=== PATIENT | female | born 1950 | race Caucasian/White ===

== ENCOUNTER → 2017-01-04 | Outpatient (CLI) | payer MEDICARE, OTHER ==
[~2017-01-04] MED LIST: AMIT25TA9 PO; ASCO10006 PO; ASCO1TAB39 PO; ASCORBIC ACID 500 MG PO; ATRV10T PO; CALC-902 PO; CELE100C PO; CITA10TA12 PO; CITA20TA12 PO; CTLP20T PO; CYCL10TA9 PO; ESTR1TAB24 PO; ESTR2TAB PO; FEXO-46 PO; FEXO60CA19 PO; FISH1CAP15 PO; HYDR-3730 PO; L.AC1CAP6 PO; LEVO88TA54 PO; LVT.025T; LVT.05T PO; MAGN400C PO; MMT17NA; MNTL10T; MULT-974 PO; NAPR-243 PO; OMG1KC PO; ONDA-42 SL; ONDA4TAB8 PO; ONDA4TAB8 SL; ONDN4T PO; OXYC-197 PO; OXYC-471 PO; PANT40TA PO; PREMPRO; PROM25SU10 PR; RNT150T; SOLI5TAB4 PO; TURM500C7 PO; VIT1CAPS5 PO; VITA150T PO; ZOLP5TAB6 PO; amitriptyline PO; calcium 600 mg PO
--- NOTE | 2017-01-04 10:25 | Diagnostic Imaging Report ---
EXAMINATION: Bilateral screening mammogram 2D views with tomosynthesis. The current study was also evaluated with a Computer Aided Detection (CAD) system. INDICATION: Screening. PERSONAL HISTORY: No current complaints stated on the questionnaire. COMPARISON: 05/14/2015. FINDINGS: The breasts are composed of heterogeneously dense parenchyma which may decrease mammographic sensitivity. Punctate benign-appearing calcifications are seen. There is an oval 8 mm asymmetry seen along the far posterior aspect of the left breast noted on the implant displaced left CC view. The right breast demonstrates no definite change. The implants appear symmetric without significant change from the previous exam and are in a retropectoral location. IMPRESSION: Further evaluation with a focal compression view and ultrasound for medial far posterior left breast asymmetry would be recommended. ACR BI-RADS Category 0: Incomplete. (Needs additional imaging evaluation). Result letter will be mailed to the patient. Note: At least 10% of breast cancer is not imaged by mammography. Dictated by: Dictated on workstation # [id number]
== END ==
LOC: RAD 08:18
PROVIDERS: ATTEND Family Medicine
DX: Z12.31 Encounter for screening mammogram for malignant neoplasm of breast (principal); N64.89 Other specified disorders of breast
CPT/HCPCS: 77067

== ENCOUNTER → 2017-01-17 | Outpatient (CLI) | payer MEDICARE, OTHER ==
--- NOTE | 2017-01-17 09:44 | Diagnostic Imaging Report ---
EXAMINATION: Left breast diagnostic mammogram with tomography. The current study was also evaluated with a Computer Aided Detection (CAD) system. INDICATION: Asymmetry along the far posterior medial aspect of the left breast. FINDINGS: The asymmetry was evaluated with focal compression views and demonstrates probably summation artifact of parenchyma with no definite underlying lesion responsible for the asymmetry. IMPRESSION: The asymmetry in the medial aspect of the left breast is favored to be related to summation artifact of parenchyma. An ultrasound evaluation is pending. ACR BI-RADS Category 0: Incomplete. (Needs additional imaging evaluation). Result letter will be mailed to the patient. Note: At least 10% of breast cancer is not imaged by mammography. Dictated by: Dictated on workstation # [id number]
--- NOTE | 2017-01-17 11:41 | Diagnostic Imaging Report ---
EXAMINATION: Left breast ultrasound. INDICATION: Left breast pain and lump. Medial left breast asymmetry. FINDINGS: There is a 1.1 cm simple cyst at the 8 o'clock zone 5 cm from the nipple. This may explain the palpable lump and mammographic abnormality. IMPRESSION: There is a 1.1 cm simple cyst at the 8 o'clock zone 5 cm from the nipple which probably explains the mammographic abnormality at the palpable area. No suspicious lesion is seen. A 6 month followup mammogram is recommended to ensure no adverse development. ACR BI-RADS Category 3: Probably benign findings. Dictated by: Dictated on workstation # [id number]
== END ==
LOC: RAD 09:06
PROVIDERS: ATTEND Family Medicine
DX: N60.02 Solitary cyst of left breast (principal)
CPT/HCPCS: 76642

== ENCOUNTER → 2017-08-04 | Outpatient (CLI) | payer MEDICARE, OTHER ==
--- NOTE | 2017-08-04 19:31 | Diagnostic Imaging Report ---
INDICATION: Left breast density. Patient presents for six-month followup. COMPARISON: Correlation is made with prior mammograms from 01/04/2017 and 01/17/2017. TECHNIQUE: 2D and 3D unilateral left diagnostic mammography was performed including conventional CC, MLO, and 90 degree lateral views with and without implant-displaced views. The current study was also evaluated with a Computer Aided Detection (CAD) system. FINDINGS: The rounded density in the far posterior medial left breast noted on prior study is no longer visualized. No new mass is detected. No malignant appearing microcalcifications are seen. The left axilla is unremarkable IMPRESSION: Previously noted rounded density in the far posterior medial left breast has resolved. Patient should return in six months for bilateral screening mammography. ACR BI-RADS Category 1: Negative. Result letter will be mailed to the patient. Note: At least 10% of breast cancer is not imaged by mammography. Dictated by: Dictated on workstation # [id number]
== END ==
LOC: RAD 13:14
PROVIDERS: ATTEND Family Medicine
DX: R92.2 Inconclusive mammogram (principal)

== ENCOUNTER → 2017-11-30 | Outpatient (CLI) | payer MEDICARE, OTHER ==
[~2017-11-30] MED LIST changes: -OXYC-197 PO; +OXYC1TAB87 PO
--- NOTE | 2017-11-30 12:21 | Diagnostic Imaging Report ---
PROCEDURE: US right lower extremity venous. TECHNIQUE: Multiple real-time grayscale images were obtained over the right lower extremity in various projections. Additional duplex Doppler and color Doppler images were also obtained. INDICATION: Leg pain and swelling. There are no prior studies available for comparison. FINDINGS: There is generally good blood flow and compressibility at all levels of the deep venous system. Shere is no sign of a deep venous thrombosis. IMPRESSION: There is no evidence for deep venous thrombosis of the right lower extremity. Dictated by: Dictated on workstation # [id number]
== END ==
LOC: RAD 10:26
PROVIDERS: ATTEND Nurse Practitioner Family
DX: M79.89 Other specified soft tissue disorders (principal)

== ENCOUNTER → 2018-02-06 | Outpatient (CLI) | payer MEDICARE, OTHER ==
--- NOTE | 2018-02-06 08:40 | Diagnostic Imaging Report ---
PROCEDURE: US Hepatic (Liver). TECHNIQUE: Multiple real-time grayscale images were obtained over the right upper quadrant in various projections. INDICATION: Elevated liver enzymes. FINDINGS: The liver is enlarged at 20 cm. No discrete liver mass is identified. The main portal vein is patent and shows normal direction of flow. Gallbladder is without stones or sludge. No wall thickening or biliary ductal dilatation is seen. Partially visualized pancreas is unremarkable. The right kidney is unremarkable. There is no ascites. IMPRESSION: Mild hepatomegaly. The study is otherwise unremarkable. Dictated by: Dictated on workstation # [id number]
== END ==
LOC: RAD 06:50
PROVIDERS: ATTEND Nurse Practitioner Family
DX: R16.0 Hepatomegaly, not elsewhere classified (principal)
CPT/HCPCS: 76705

== ENCOUNTER → 2018-08-22 | Outpatient (CLI) | payer MEDICARE, OTHER ==
--- NOTE | 2018-08-22 18:19 | Diagnostic Imaging Report ---
INDICATION: Routine screening. Comparison is made with prior mammograms from 01/04/2017 and 05/14/2015. 2-D and 3-D bilateral screening mammography was performed. The current study was also evaluated with a Computer Aided Detection (CAD) system. 3-D tomosynthesis was also performed and reviewed. FINDINGS: Bilateral subpectoral breast implants are noted. There are calcifications along the implant shell on the right. This is similar to prior exam. Breast parenchyma shows scattered fibroglandular elements. No mass or malignant-appearing microcalcifications are seen. There are benign calcifications in the left breast. The axillae are unremarkable. IMPRESSION: No mammographic features suspicious for malignancy are identified. ACR BI-RADS Category 2: Benign findings. Result letter will be mailed to the patient. Note: At least 10% of breast cancer is not imaged by mammography. Dictated by: Dictated on workstation # [id number]
== END ==
LOC: RAD 13:04
PROVIDERS: ATTEND Nurse Practitioner Family
DX: Z12.31 Encounter for screening mammogram for malignant neoplasm of breast (principal)
CPT/HCPCS: 77067

== ENCOUNTER 2018-10-26 06:25 | Outpatient (CLI) | payer MEDICARE, OTHER ==
[~2018-10-26] VITALS: Ht 167.6 cm; Wt 72.6 kg
[2018-10-26] MEDS ORDERED: ATOR10TA66 PO (15:46)
[2018-10-26] MEDS ORDERED: LEVO125T6 PO (15:46)
[2018-10-26] MEDS ORDERED: TURM538C PO (15:46)
[2018-10-26] MEDS ORDERED: MULT1TAB69 PO (15:46)
[2018-10-26] MEDS ORDERED: OMEP20TA7 PO (15:48)
== END 2018-10-26 15:49 | disposition home or self-care (01) ==
LOC: PREOP 06:25
PROVIDERS: ATTEND Surgery
DX: Z01.818 Encounter for other preprocedural examination (principal)

== ENCOUNTER 2018-10-31 10:09 | Day surgery (SDC) | payer MEDICARE, OTHER ==
[2018-10-31] VITALS (7 sets, daily range): BP systolic 112–153; BP diastolic 51–71
[~2018-10-31] VITALS: Ht 167.6 cm; Wt 72.6 kg
[~2018-10-31 10:09] MED LIST changes: +ATOR10TA66 PO; +LACTATED RINGERS 1,000 ML IV ONE; +LEVO125T6 PO; +MULT1TAB69 PO; +OMEP20TA7 PO; +TURM538C PO
[2018-10-31] MEDS ORDERED: LACTATED RINGERS 1,000 ML IV STA (10:15)
[2018-10-31] MEDS ORDERED: MIDAZOLAM 2 MG/2 ML (VERSED) VIAL ONE (10:26)
[2018-10-31] MEDS ORDERED: PROPOFOL INJECTION 50 ML IV ONE (10:26)
--- NOTE | 2018-10-31 10:27 | Progress Note-Pre Operative ---
Pre-Operative Progress Note H&P Reviewed The H&P was reviewed, patient examined and no changes noted. Date Seen by Provider: Oct 31, 2018 Time Seen by Provider: 10: Date H&P Reviewed: Oct 31, 2018 Time H&P Reviewed: 10:26 Pre-Operative Diagnosis: change in bowel habits LY REED DO Oct 31, 2018 10:27
--- NOTE | 2018-10-31 11:39 | Discharge Inst-Simple/Standard ---
Discharge Inst-Standard Patient Instructions/Follow Up Plan of Care/Instructions/FU: 2 weeks [place] Activity as Tolerated: Yes Discharge Diet: Regular Diet LY REED DO Oct 31, 2018 11:39
--- NOTE | 2018-10-31 11:41 | Progress Note-Post Operative ---
Post-Operative Progess Note Surgeon (s)/Hotshot Superintendent (s) Surgeon LY REED DO Hotshot Superintendent: n/a Pre-Operative Diagnosis change in bowel habits Post-Operative Diagnosis colon polyps x5 Procedure & Operative Findings Date of Procedure 10/31/18 Procedure Performed/Findings colonoscopy with hot biopsy polypectomy x5 Anesthesia Type per car changer Estimated Blood Loss Estimated blood loss (mL): none Specimens/Packing Specimens Removed colon polyps x5 LY REED DO Oct 31, 2018 11:41
--- NOTE | 2018-10-31 14:19 | OPERATIVE REPORT ---
DATE OF SERVICE: 10/31/2018 PREOPERATIVE DIAGNOSIS: Change in bowel habits. POSTOPERATIVE DIAGNOSIS: Colon polyps x5. PROCEDURE PERFORMED: Colonoscopy with hot biopsy polypectomy x5. SURGEON: Ly Tran DO ANESTHESIA: Per BUS BOY. ESTIMATED BLOOD LOSS: None. COMPLICATIONS: None. INDICATIONS: The patient is a 68-year-old female who has had change in bowel habits. She understands risks and benefits of procedure and wished to proceed with procedure. Consent was signed in the chart. DESCRIPTION OF PROCEDURE: The patient was taken to the endoscopy suite, placed in left lateral recumbent position. Timeout was performed. Scope was inserted into the rectum, advanced all the way to the cecum. The patient will be changed repositioned multiple times in order to get to the cecum. She has a slightly floppy colon. The cecum was identified. Small polyps present within the cecum and hot biopsy polypectomy was performed. Scope was then continued to be slowly retracted back. There were four polyps within the ascending colon, which hot biopsy polypectomy was performed on these. Scope was continued to be slowly retracted back. There were no polyps, masses or ulcerations within the transverse, descending and sigmoid colon. Once in the rectum, scope was retroflexed noting no other pathology. Scope was returned to its normal position, slowly withdrawn until completely removed. The patient tolerated procedure well without any complications. She was taken to recovery room in stable condition. RECOMMENDATIONS: The patient has a number of polyps, we would recommend repeat colonoscopy in one year. Any issues before that be seen at that time. Recommend high fiber diet. Job ID: [id number] DocumentID: [id number] Dictated Date: 10/31/2018 11:57:00 Industrial Cleaning Technician Date: 10/31/2018 14:18:00 Dictated By: LY TRAN DO
--- NOTE | 2018-10-31 15:32 | Anesthesia-General Post-Op ---
MAC Patient Condition Mental Status/LOC: Same as Preop Cardiovascular: Satisfactory Nausea/Vomiting: Absent Respiratory: Satisfactory Pain: Controlled Complications: Absent Post Op Complications Complications None Follow Up Care/Instructions Patient Instructions None needed. Anesthesiology Discharge Order Discharge Order Patient was seen after the procedure and she was doing well, no complaints, stable vital signs, no apparent adverse anesthesia problems. JACQUELINE ARRIETA DO Oct 31, 2018 15:32
== END 2018-10-31 12:40 | disposition home or self-care (01) ==
LOC: ENDO 10:09
PROVIDERS: ATTEND Surgery
DX: D12.2 Benign neoplasm of ascending colon (principal); D12.0 Benign neoplasm of cecum; K21.9 Gastro-esophageal reflux disease without esophagitis; K59.00 Constipation, unspecified; E78.5 Hyperlipidemia, unspecified; E07.9 Disorder of thyroid, unspecified; F41.9 Anxiety disorder, unspecified; Z88.1 Allergy status to other antibiotic agents; Z88.2 Allergy status to sulfonamides; Z88.8 Allergy status to other drugs, medicaments and biological substances; Z79.899 Other long term (current) drug therapy; Z83.6 Family history of other diseases of the respiratory system; Z87.09 Personal history of other diseases of the respiratory system; Z90.710 Acquired absence of both cervix and uterus
CPT/HCPCS: 88305

== ENCOUNTER → 2019-08-24 | Outpatient (CLI) | payer MEDICARE, OTHER ==
[~2019-08-24] MED LIST changes: -LACTATED RINGERS 1,000 ML IV ONE
--- NOTE | 2019-08-24 12:58 | Diagnostic Imaging Report ---
INDICATION: Routine screening. Comparison is made to prior mammogram from 08/22/2018 and 01/04/2017. 2-D and 3-D bilateral screening mammography was performed with CAD. The patient has bilateral breast implants. A right implant does appear to be partially collapsed on today's exam. There is also high density surrounding the implant suggestive of extracapsular silicone from extracapsular rupture. This does appear to be new since last year's mammogram. The left breast implant appears intact. Both breasts remain heterogeneously dense, limiting the sensitivity of mammography. No dominant mass or malignant-appearing microcalcifications are seen. There are occasional benign calcifications. Axillae are unremarkable. IMPRESSION: BI-RADS Category 2 1. No mammographic features suspicious for malignancy are identified. 2. Findings suggestive of extracapsular implant rupture on the right, new since examination one year earlier. ACR BI-RADS Category 2: Benign findings. Result letter will be mailed to the patient. Note: At least 10% of breast cancer is not imaged by mammography. Dictated by: Dictated on workstation # [id number]
== END ==
LOC: RAD 08:13
PROVIDERS: ATTEND Nurse Practitioner Family
DX: Z12.31 Encounter for screening mammogram for malignant neoplasm of breast (principal); Z98.82 Breast implant status
CPT/HCPCS: 77063; 77067

== ENCOUNTER → 2019-08-29 | Outpatient (CLI) | payer MEDICARE, OTHER ==
[~2019-08-29] MED LIST changes: +MULT-567 PO; -MULT1TAB69 PO
--- NOTE | 2019-08-29 13:14 | Diagnostic Imaging Report ---
INDICATION: Abnormal recent screening mammogram demonstrating a probable implant rupture on the right. COMPARISON: Correlation is made with the screening mammogram from 08/24/2019. FINDINGS: Sonographic interrogation of the right breast was performed. There is a complex fluid collection in the outer aspect of the right breast at approximately the 9 o'clock location 9 to 10 cm from the nipple. This complex collection measures 6.3 x 3.1 x 4.1 cm. This may represent a mixture of fluid and perhaps silicone from implant rupture. No other abnormalities are seen. IMPRESSION: Findings consistent with probable right breast implant rupture. There is a fluid collection in the lateral aspect of the right breast. There appears to be free silicone present. Further characterization could be performed with an MRI of the breasts. Dictated by: Dictated on workstation # [id number]
== END ==
LOC: RAD 11:42
PROVIDERS: ATTEND Nurse Practitioner Family
DX: S29.9XXA Unspecified injury of thorax, initial encounter (principal); W19.XXXA Unspecified fall, initial encounter; Z98.82 Breast implant status

== ENCOUNTER → 2019-09-11 | Outpatient (CLI) | payer MEDICARE, OTHER | LOC: LABNPT 08:27 | PROVIDERS: ATTEND Family Medicine | DX: Z20.828 Contact with and (suspected) exposure to other viral communicable diseases (principal); Z53.8 Procedure and treatment not carried out for other reasons ==

== ENCOUNTER → 2019-09-26 | Outpatient (CLI) | payer MEDICARE, OTHER | LOC: LABNPT 06:55 | PROVIDERS: ATTEND Family Medicine | DX: Z20.828 Contact with and (suspected) exposure to other viral communicable diseases (principal) | CPT/HCPCS: 87635 ==

== ENCOUNTER → 2020-08-01 | Outpatient (CLI) | payer MEDICARE, OTHER ==
[~2020-08-01] MED LIST changes: +ASCO100024 PO; -ASCO10006 PO; -OXYC-471 PO; +OXYC1TAB11 PO
--- NOTE | 2020-08-01 16:41 | Diagnostic Imaging Report ---
EXAMINATION: Lumbar spine at 3:56 PM. INDICATION: Back pain. TECHNIQUE/COMPARISON: Three views were obtained. There are no prior studies available for comparison. FINDINGS: The lateral view shows slight exaggeration of the normal lordosis of the lumbar spine. This may be secondary to positioning. The vertebral body heights are within normal limits and the intervertebral spaces are well-maintained. There is no fracture or acute bony abnormality noted. There is no sign of a paraspinal mass; however, there is a considerable amount of fecal material in the ascending, transverse, and descending colon. There is mild symmetrical sclerosis of the sacroiliac joints. IMPRESSION: 1. There is no evident for an acute bony abnormality. 2. If there is clinical concern regarding spinal stenosis or nerve root encroachment, then MRI would be recommended for additional evaluation. Dictated by: Dictated on workstation # [id number]
== END ==
LOC: RAD 15:34
PROVIDERS: ATTEND Nurse Practitioner Family
DX: M54.5 Low back pain (principal)
CPT/HCPCS: 72100

== ENCOUNTER → 2020-08-25 | Outpatient (CLI) | payer MEDICARE, OTHER ==
--- NOTE | 2020-08-25 13:17 | Diagnostic Imaging Report ---
Clinical indications: Patient bent over a few weeks ago and now has pain in her lower back. Exam: MRI of the lumbar spine performed without IV contrast. Sagittal T2, sagittal T1, sagittal stir, axial T1, and axial T2. Comparison: X-ray lumbar spine dated 07/24/2020. Findings: There is no acute lumbar spine fracture or dislocation. There is Modic type I degenerative signal changes involving the L3-L4 endplates posteriorly and L1-L2 endplate regions anteriorly. There is no significant paraspinal soft tissue abnormality. The visualized portions of the distal thoracic spinal cord, conus medullaris, and cauda equina nerve roots are unremarkable. The conus medullaris tip is seen at the upper L2 vertebral body level. Besides the L3-L4 level, the intervertebral disk heights are maintained. There is slight low T2 degenerative disk signal changes seen throughout the lumbar spine likely representing mild degenerative changes. T12-L1, L1-L2, and L2-L3: Unremarkable. L3-L4: There is mild loss of disk space height with small anterior disk bulge with spurs. There is no significant posterior disk bulge. There is no significant central spinal canal or neural foramen narrowing. L4-L5: There is mild facet arthropathy. There is no significant central spinal canal or neural foramen narrowing. L5-S1: There is no significant central spinal canal or neural foramen narrowing. Impression: 1: There is mild loss of disk space height at the L3-L4 level with small anterior disk bulge with small spurs. There is no significant central spinal canal or neural foramen narrowing. 2: There is mild L4-L5 bilateral neural foramen narrowing. Otherwise, the remainder of the lumbar spine shows no other significant abnormality. Dictated by: Dictated on workstation # [id number]
== END ==
LOC: RAD 09:30
PROVIDERS: ATTEND Nurse Practitioner Family
DX: M51.36 Other intervertebral disc degeneration, lumbar region (principal); M48.061 Spinal stenosis, lumbar region without neurogenic claudication; M51.26 Other intervertebral disc displacement, lumbar region
CPT/HCPCS: 72148

== ENCOUNTER → 2020-09-05 | Outpatient (CLI) | payer MEDICARE ==
--- NOTE | 2020-09-05 11:44 | Diagnostic Imaging Report ---
INDICATION: Routine screening. COMPARISON is made with prior mammograms 08/24/2019 and 08/22/2018. 2-D and 3-D bilateral screening mammography was performed with CAD. Both breasts are heterogeneously dense, limiting the sensitivity of mammography. Previously seen breast implants have been removed. There is density in the right breast, particularly laterally and posteriorly which likely represents free silicone. Free silicone extends into the right axilla. This does significantly limit evaluation of the right breast. A circumscribed density in the retroareolar left breast is seen consistent with a cyst. No malignant appearing microcalcifications are seen. There are benign calcifications. IMPRESSION: BI-RADS Category 2 Implant removal bilaterally. There is free silicone throughout the right breast and right axilla from prior implant rupture. This does limit evaluation. No definite mammographic features suspicious for malignancy are identified. ACR BI-RADS Category 2: Benign findings. Result letter will be mailed to the patient. Note: At least 10% of breast cancer is not imaged by mammography. Dictated by: Dictated on workstation # [id number]
== END ==
LOC: RAD 07:30
PROVIDERS: ATTEND Family Medicine
DX: Z12.31 Encounter for screening mammogram for malignant neoplasm of breast (principal)
CPT/HCPCS: 77063; 77067

== ENCOUNTER → 2021-07-07 | Outpatient (CLI) | payer MEDICARE ==
[~2021-07-07] MED LIST changes: -ESTR2TAB PO; +ESTR2TAB3 PO; -FEXO-46 PO; +NF-ALLE180 PO; +OMEP20TA56 PO; -OMEP20TA7 PO
--- NOTE | 2021-07-07 15:12 | Diagnostic Imaging Report ---
INDICATION: Low back pain. TIME OF EXAM: 2:22 PM. FINDINGS: Multiple views of the sacroiliac joints were obtained. The SI joints are unremarkable. There is no evidence of ankylosis. No sclerosis or osseous erosive changes are seen. IMPRESSION: No acute feature is detected. Dictated by: Dictated on workstation # [id number]
--- NOTE | 2021-07-07 15:31 | Diagnostic Imaging Report ---
INDICATION: Right hip pain. TIME OF EXAM: 2:20 PM. TECHNIQUE: Two views of the right hip were obtained. FINDINGS: The femoroacetabular alignment is normal. The femoral head and neck are intact. The right-sided rami are intact. No fractures are seen. IMPRESSION: No acute bony abnormality is detected. Dictated by: Dictated on workstation # [id number]
== END ==
LOC: RAD 13:56
PROVIDERS: ATTEND Family Medicine
DX: M25.551 Pain in right hip (principal); M54.50 Low back pain, unspecified
CPT/HCPCS: 72202; 73502

== ENCOUNTER → 2021-07-16 | Outpatient (CLI) | payer MEDICARE ==
--- NOTE | 2021-07-20 09:34 | Diagnostic Imaging Report ---
PROCEDURE: CT chest, abdomen, and pelvis without contrast. TECHNIQUE: Multiple contiguous axial images were obtained through the chest, abdomen, and pelvis without the use of intravenous contrast. Auto Exposure Controls were utilized during the CT exam to meet ALARA standards for radiation dose reduction. INDICATION: Right hip and back pain as well as right-sided pain. Patient has prior history of breast implant rupture. Comparison is made with prior CT chest from 01/01/2015 as well as prior CT abdomen pelvis study from 01/12/2014. CT CHEST: No axillary lymphadenopathy is detected. No definite mediastinal or hilar lymphadenopathy is detected. No pericardial or pleural fluid is identified. A pleural-based density in the posterior aspect left upper lobe is stable at 1.4 x 1.2 cm compare with 1.5 x 1.2 cm on prior exam. No new parenchyma abnormalities are seen. A small subpleural nodule in the anterior aspect right middle lobe is stable. There is a large hiatal hernia. A previously noted bilateral breast implants have now been removed. No definite silicone accumulations or disseminated silicone is identified. IMPRESSION: 1. Stable subpleural pulmonary opacities when compared with exam from 12/24/2014. No new pulmonary parenchymal abnormality or evidence of thoracic lymphadenopathy is detected. 2. Removal of bilateral breast implants. No disseminated silicone is identified. CT abdomen and pelvis: A large hiatal hernia is noted. The liver and gallbladder are unremarkable. There is no biliary ductal dilatation. The pancreas and spleen are unremarkable. No adrenal mass is detected. No renal calculi or hydronephrosis is detected. Aorta is nonaneurysmal. The small and large bowel loops appear to be normal caliber. There is moderate stool throughout the colon. Appendix is unremarkable. No free fluid or fluid collection is seen. Bladder is decompressed. The uterus appears to be surgically absent. No definite abdominal or pelvic lymphadenopathy is identified. No abdominal wall collections are seen to suggest free silicone. There are no fluid collections detected. No acute feature is identified. IMPRESSION: 1. Large hiatal hernia. 2. Otherwise unremarkable noncontrast CT of the abdomen and pelvis. Dictated by: Dictated on workstation # [id number]
== END ==
LOC: RAD 08:21
PROVIDERS: ATTEND Family Medicine
DX: Z45.811 Encounter for adjustment or removal of right breast implant (principal); Z45.812 Encounter for adjustment or removal of left breast implant; K44.9 Diaphragmatic hernia without obstruction or gangrene; R91.8 Other nonspecific abnormal finding of lung field; M25.551 Pain in right hip; M54.9 Dorsalgia, unspecified
CPT/HCPCS: 71250; 74176

== ENCOUNTER → 2021-09-15 | Outpatient (CLI) | payer MEDICARE ==
--- NOTE | 2021-09-15 11:20 | Diagnostic Imaging Report ---
EXAMINATION: Magnetic resonance imaging of the pelvis and right hip without contrast. DATE: September 15, 2021. COMPARISON: CT chest, abdomen, and pelvis July 16, 2021. Right hip radiographs July 07, 2021. INDICATION: 71-year-old female, chronic right hip pain. TECHNIQUE: Magnetic Resonance Imaging sequences were performed of the pelvis and right hip without contrast. FINDINGS: TENDONS AND MUSCLES: The gluteus krystal muscles and their origins and insertions are intact bilaterally. There is a full-thickness tear involving the right gluteus minimus tendon. There is tendon retraction measuring up to roughly 2.2 cm. The right gluteus medius tendon is without tear. There is prominent adjacent soft tissue edema. There is also edema-like signal in the right gluteus minimus muscle, most consistent with a low-grade muscle strain. The left gluteus minimus and medius tendons appear intact. Both common hamstring attachments on the ischial tuberosities are intact and the extensor muscles of the thigh are intact. The visualized portions of the flexors and adductor muscles of the thigh and their attachments on the pelvis and hips are intact. Both iliopsoas and iliacus muscles are intact. The bilateral iliopsoas tendons are intact. HIPS AND SACROILIAC JOINTS: The contours of the femoral heads and acetabuli are smooth and symmetric. There is no identified fluid-filled labral tear or paralabral cyst. The joint spaces of both hips appear well-preserved. There is no hip joint effusion. The sacroiliac joints are unremarkable. LUMBAR SPINE: The visible portions of the lumbar spine are unremarkable on limited assessment. BONE: The bones all have normal configuration. The bone marrow signal is within normal limits. Specifically, negative for fracture, osteomyelitis, osteonecrosis, or marrow replacing process. BURSAE AND SOFT TISSUES: The bursae and soft tissues surrounding the pelvis and hips are within normal limits. IMPRESSION: 1. Complete tear involving the right gluteus minimus tendon at its trochanteric attachment site with tendon retraction of 2.2 cm. There is also a low-grade muscle strain of the right gluteus minimus muscle. 2. Unremarkable evaluation of both hip joints. 3. No acute fracture, bone contusion, or evidence of osteonecrosis. Dictated by: Dictated on workstation # [id number]
== END ==
LOC: RAD 09:00
PROVIDERS: ATTEND Family Medicine
DX: S76.011A Strain of muscle, fascia and tendon of right hip, initial encounter (principal); X58.XXXA Exposure to other specified factors, initial encounter
CPT/HCPCS: 73721

== ENCOUNTER → 2021-10-30 | Outpatient (CLI) | payer MEDICARE ==
--- NOTE | 2021-10-30 12:50 | Diagnostic Imaging Report ---
Indication: Routine screening. Comparison is made with prior mammogram 09/05/2020 08/24/2019. 2-D and 3-D bilateral screening mammography was performed with CAD. CAD is utilized. The current study was also evaluated with a Computer Aided Detection (CAD) system. Both breasts are heterogeneously dense, limiting the sensitivity of mammography. Areas of high density in the right breast posteriorly and laterally are again noted consistent with free silicone. This again significantly compromises evaluation of the right breast. There is high density in the right axilla as well. The overall appearance is similar to prior exam. Left breast is stable. No mass is seen. No malignant-appearing microcalcifications are identified. Axillae on the left is unremarkable. IMPRESSION: BI-RADS Category 2 No mammographic features suspicious for malignancy are identified. ACR BI-RADS Category 2: Benign findings. Result letter will be mailed to the patient. Note: At least 10% of breast cancer is not imaged by mammography. Dictated by: Dictated on workstation # [id number]
== END ==
LOC: RAD 09:20
PROVIDERS: ATTEND Family Medicine
DX: Z12.31 Encounter for screening mammogram for malignant neoplasm of breast (principal)
CPT/HCPCS: 77063; 77067

== ENCOUNTER → 2022-04-27 | Outpatient (CLI) | payer MEDICARE ==
--- NOTE | 2022-04-27 13:33 | Diagnostic Imaging Report ---
INDICATION: Post menopausal state, N95.9 COMPARISON: 10/25/2013 FINDINGS: AP Spine L1-L4: [BMD (g/cm2): 1.183] [T-Score: -0.1] [Z-Score: 1.0] [BMD Previous: 1.098] [BMD % Change: 7.7]* LT Hip Neck: [BMD (g/cm2): 0.968] [T-Score: -0.5] [Z-Score: 0.9] LT Hip Total: [BMD (g/cm2):1.075] [T-Score:0.5] [Z-Score: 1.6] [BMD Previous: 1.009] [BMD % Change: 6.5] RT Hip Neck: [BMD (g/cm2):0.934] [T-Score:-0.7] [Z-Score:0.6] RT Hip Total: [BMD (g/cm2):1.078] [T-score:0.6] [Z-Score:1.7] [BMD Previous:1.054] [BMD % Change:2.3] *Indicates significant change from prior examination based on 95% confidence level. World Health Organization criteria for BMD interpretation classify patients as Normal (T-score at or above -1.0), Osteopenic (T-score between -1.0 and -2.5) or Osteoporotic (T-score at or below -2.5). LIMITATIONS AND MODIFICATION: None. IMPRESSION: 1. Normal bone mineral density. 2. Bone mineral density within the lumbar spine has significantly increased since the prior examination, though some of this apparent increase could be artifactual secondary to degenerative hypertrophic changes. 3. See below National Osteoporosis Foundation guidelines on when to potentially initiate pharmacologic therapy. Based on the National Osteoporosis Foundation Guidelines, pharmacologic treatment should be initiated in any of the following, unless clinical conditions suggest otherwise: * Any patient with prior fragility fracture of the hip or vertebrae. A spine fracture indicates 5X risk for subsequent spine fracture and 2X risk for subsequent hip fracture. * Osteoporosis (T-score <-2.5). * Postmenopausal women and men age 50 and older with low bone mass/osteopenia (T-score between -1.0 and -2.5) by DXA and 10-year major osteoporotic fracture greater than 20% or a 10-year probability of hip fracture greater than 3%. These fracture risks are supplied above in the FRAX score, if applicable. * Clinician judgement and/or patient preferences may indicate treatment for people with 10-year fracture probabilities above or below these levels. Dictated by: Dictated on workstation # [id number]
== END ==
LOC: RAD 08:17
PROVIDERS: ATTEND Nurse Practitioner Family
DX: Z78.0 Asymptomatic menopausal state (principal)
CPT/HCPCS: 77080

== ENCOUNTER → 2022-05-13 | Outpatient (CLI) | payer MEDICARE ==
--- NOTE | 2022-05-13 13:34 | Diagnostic Imaging Report ---
Ultrasound of the right breast INDICATION: Right breast lump The diagnostic mammogram performed prior to this study failed to show any sign of malignancy. On this exam, there is a well-circumscribed avascular 3 x 3 x 4 mm anechoic lesion near the skin surface in the region of the patient's palpable abnormality. I suspect that this is a small cyst and most likely this does correspond to the patient's palpable abnormality. Deeper to the palpable lesion in the same region, there is a 1.1 x 1.3 x 1.3 cm oval avascular hypoechoic lesion with some through transmission. This does suggest a cyst and this would correspond to the oval asymmetry seen on the mammogram. There is no solid mass to suggest malignancy. IMPRESSION: 1. There is a small superficial cyst in the region of the patient's palpable abnormality. This cyst has a generally benign appearance. 2. There is no evidence of malignancy. ACR category 2, benign. ACR BI-RADS Category 2: Benign findings. Result letter will be mailed to the patient. Note: At least 10% of breast cancer is not imaged by mammography. Dictated by: Dictated on workstation # [id number]
--- NOTE | 2022-05-13 19:52 | Diagnostic Imaging Report ---
INDICATION: Right breast lump. EXAMINATION: 3D unilateral diagnostic right mammogram with CAD. The current study was also evaluated with a Computer Aided Detection (CAD) system. COMPARISON: This study was compared to the recent exam of 10/30/2021 and to the previous studies of 09/05/2020, 08/24/2019 and 08/22/2018. At this time the patient does complain of a lump in the 2 o'clock position of the right retroareolar region. FINDINGS: A marker was placed at the area of concern. In this area there is a roughly 1.5 cm oval mass. This finding seems unchanged when compared to the previous exams as far back as 2020. The tomographic images show that this finding has a smooth margin and I suspect that this is a benign process such as a cyst. Even so, I would recommend that ultrasound be performed for further study. There is no other abnormality seen. However, the fibroglandular tissue in the right breast is quite dense and difficult to assess. The free silicone seen on the previous exams is again evident. IMPRESSION: Ultrasound would be recommended for further evaluation of the right breast. ACR BI-RADS Category 0: Incomplete. (Needs additional imaging evaluation). Result letter will be mailed to the patient. Note: At least 10% of breast cancer is not imaged by mammography. Dictated by: Dictated on workstation # [id number]
== END ==
LOC: RAD 09:45
PROVIDERS: ATTEND Family Medicine
DX: N60.01 Solitary cyst of right breast (principal)
CPT/HCPCS: 76642; 77065; G0279

== ENCOUNTER 2022-07-08 19:21 | Inpatient (IN) | payer MEDICARE ==
[~2022-07-08] VITALS: Ht 167.7 cm; Wt 77.5 kg
[2022-07-08 19:41] LABS: ABG BASE EXCESS 0.5 MMOL/L (-2.5-2.5); ABG OXYGEN SATURATION 92 % (94-100); ABG PCO2 39 MMHG (35-45); ABG PH 7.42 (7.37-7.43); ABG PO2 65 MMHG (79-93); ABG TCO2 25.9 MMOL/L (21.0-31.0)
--- NOTE | 2022-07-08 19:43 | ED Cough/URI ---
General Chief Complaint: Respiratory Problems Stated Complaint: SOB Source: patient Exam Limitations: no limitations History of Present Illness Date Seen by Provider: July 08, 2022 Time Seen by Provider: 19:42 Initial Comments Patient is a 72-year-old female who presents ED with shortness of breath and cough. Symptoms started 6 days ago with sore throat difficulty swallowing. States she lost her voice concerning for laryngitis. Start developing a wet cough with shortness of breath and wheezing. She reports greenish sputum production with bright red tinge blood. States she vomited mucus. She reports increased short of breath. She does have a history of allergies. Her primary care physician Dr. Hernández prescribed her prednisone which she took 60 mg today and cough medication without much improvement. On arrival 83% oxygen on room air. She does not wear oxygen at home. No history of COPD, CHF. Denies abdominal pain vomiting, diarrhea, headache or dizziness. Allergies and Home Medications Allergies Coded Allergies: clarithromycin (Unverified Allergy, Mild, 05/17/06) nitrofurantoin (Unverified Allergy, Mild, 05/17/06) sulfamethoxazole (Unverified Allergy, Mild, 05/17/06) trimethoprim (Unverified Allergy, Mild, 05/17/06) codeine (Verified Adverse Reaction, Unknown, NAUSEA, 07/08/22) Patient Home Medication List Home Medication List Reviewed: Yes Amitriptyline HCl (Amitriptyline HCl) 25 Mg Tablet, 12.5 MG PO HS, (Reported) Entered as Reported by: ALBA LEIJA on 09/25/15 0921 Last Action: Reviewed Ascorbic Acid (Vitamin C) 1,000 Mg Tablet, 1,000 MG PO DAILY, (Reported) Entered as Reported by: CHARLIE CRESPO on 09/22/15 1613 Last Action: Held Ascorbic Acid/Vitamin E/Biotin (Hair Skin Nails-Biotin Gummies) 1 Each Tab.chew, 1 TAB PO DAILY, (Reported) Entered as Reported by: OSWALDO YANES on 04/03/15 1458 Last Action: Held Atorvastatin Calcium (Atorvastatin Calcium) 10 Mg Tablet, 10 MG PO HS, (Reported) Entered as Reported by: CHARLIE CRESPO on 10/26/18 1546 Last Action: Held Calcium Carbonate/Vitamin D3 (Calcium 600 + Vit D3 Tablet) 1 Each Tablet, 1 TAB PO BID, (Reported) Entered as Reported by: CHARLIE CRESPO on 09/22/15 161 Last Action: Held Citalopram Hydrobromide (Celexa) 20 Mg Tablet, 10 MG PO HS, (Reported) Entered as Reported by: ALBA LEIJA on 09/25/15 0917 Last Action: Held Estradiol (Estradiol Tablet) 2 Mg Tablet, 2 MG PO HS, (Reported) Entered as Reported by: CHARLIE CRESPO on 09/22/151612 Last Action: Held Fexofenadine HCl (Fexofenadine HCl) 180 Mg Tablet, 180 MG PO HS, (Reported) Entered as Reported by: ALBA LEIJA on 09/25/15 0902 Last Action: Held Fish Oil/Dha/Epa (Fish Oil 1,200 mg Fish Oil) 1 Each Capsule, 1 CAP PO BID, (Reported) Entered as Reported by: CHARLIE CRESPO on 09/22/151612 Last Action: Held L.acidoph & Paracasei,B.lactis (Probiotic) 1 Each Capsule, 1 CAP PO DAILY, (Reported) Entered as Reported by: CHARLIE CRESPO on 09/22/151612 Last Action: Held Levothyroxine Sodium (Levothyroxine Sodium) 125 Mcg Tablet, 125 MCG PO DAILY, (Reported) Entered as Reported by: CHARLIE CRESPO on 10/26/181545 Last Action: Held Multivitamin (Multivitamins) 1 Each Tablet, 1 EACH PO DAILY, (Reported) Entered as Reported by: CHARLIE CRESPO on 10/26/181545 Last Action: Held Omeprazole (Omeprazole) 20 Mg Tablet.dr, 20 MG PO DAILY, (Reported) Entered as Reported by: CHARLIE CRESPO on 10/26/18 154 Last Action: Held Turmeric Root Extract (Turmeric) 538 Mg Capsule, 538 MG PO DAILY, (Reported) Entered as Reported by: CHARLIE CRESPO on 10/26/181545 Last Action: Held Vit A/C/E/Zinc/Co (Preservision Areds Softgel) 1 Cap Capsule, 1 CAP PO BID, (Reported) Entered as Reported by: OSWALDO YANES on 04/03/15 7698 Last Action: Held Review of Systems Review of Systems Constitutional: chills, malaise, weakness EENTM: hoarseness, throat pain; No ear pain, No blurred vision, No mouth pain, No mouth swelling Respiratory: cough, short of breath Cardiovascular: No chest pain, No edema, No syncope, No other Gastrointestinal: No abdominal pain, No diarrhea, No nausea, No vomiting Genitourinary: No decreased output, No discharge Musculoskeletal: No back pain, No gout Psychiatric/Neurological: Denies Anxiety, Denies Depressed All Other Systems Reviewed Negative Unless Noted: Yes Past Jebzkfb-Hnlwuy-Qpsydg Hx Seasonal Allergies Seasonal Allergies: Yes Past Medical History Surgeries: Yes (BREAST AUGMENTATION, RHINOPLASTY, BUNIONECTOMY, LAP NISSIEN. ARM FX) Hysterectomy Respiratory: No Cardiac: No Neurological: No Reproductive Disorders: No Sexually Transmitted Disease: No HIV/AIDS: No Genitourinary: No Gastrointestinal: Yes Gastroesophageal Reflux, Hiatal Hernia Musculoskeletal: No Endocrine: Yes Hypothyroidsim HEENT: No Loss of Vision: Bilateral Cancer: No Psychosocial: Yes Anxiety Integumentary: No Blood Disorders: No Family Medical History Alcoholism Arthritis Asthma Completed stroke Hypertension Psychosocial problem Respiratory disorder No Family History of: AIDS Abdominal aortic aneurysm [place]'s disease Alzheimer's disease Aphasia Cancer of mouth Cardiovascular disease Cataracts Colon cancer Congenital disease Congenital heart disease Coronary thrombosis Cystic fibrosis Deafness or hearing loss Dementia Diabetes mellitus Dysphasia Fibrocystic disease of breast Gastroenteritis Glaucoma Headache disorder Hypercholesterolemia Infertility Kidney disease Neoplasm Not obtainable due to adoption Osteoporosis Parkinson's disease Prostate cancer Seizure disorder Severe allergy Thyroid disease Tuberculosis Visual disorder Physical Exam Vital Signs - First Documented Capillary Refill : Height: 5'6.00" Weight: 160lbs. 0.0oz. 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, no motor/sensory deficits, alert, normal mood/affect, oriented x 3 Skin: normal color, warm/dry Focused Exam Lactate Level 07/08/22 19:25: Lactic Acid Level 1.46 Lactic Acid Level Laboratory Tests Test 07/08/22 19:25 Lactic Acid Level 1.46 MMOL/L (0.50-2.00) Progress/Results/Core Measures Suspected Sepsis SIRS Temperature: Pulse: Respiratory Rate: Laboratory Tests 07/08/22 19:25: White Blood Count 6.1 Blood Pressure / Mean: 07/08/22 19:25: Lactic Acid Level 1.46 Laboratory Tests 07/08/22 19:25: Creatinine 1.02, INR Comment 1.0, Platelet Count 247, Total Bilirubin 0.5 Results/Orders Lab Results Laboratory Tests Test 07/08/22 19:25 07/08/22 19:35 07/08/22 19:56 Range/Units White Blood Count 6.1 4.3-11.0 10^3/uL Red Blood Count 3.92 3.80-5.11 10^6/uL Hemoglobin 13.5 11.5-16.0 g/dL Hematocrit 39 35-52 % Mean Corpuscular Volume 98 80-99 fL Mean Corpuscular Hemoglobin 34 25-34 pg Mean Corpuscular Hemoglobin Concent 35 32-36 g/dL Red Cell Distribution Width 12.9 10.0-14.5 % Platelet Count 247 130-400 10^3/uL Mean Platelet Volume 10.6 9.0-12.2 fL Immature Granulocyte % (Auto) 1 % Neutrophils (%) (Auto) 62 42-75 % Lymphocytes (%) (Auto) 19 12-44 % Monocytes (%) (Auto) 15 H 0-12 % Eosinophils (%) (Auto) 2 0-10 % Basophils (%) (Auto) 1 0-10 % Neutrophils # (Auto) 3.8 1.8-7.8 10^3/uL Lymphocytes # (Auto) 1.2 1.0-4.0 10^3/uL Monocytes # (Auto) 0.9 0.0-1.0 10^3/uL Eosinophils # (Auto) 0.1 0.0-0.3 10^3/uL Basophils # (Auto) 0.0 0.0-0.1 10^3/uL Immature Granulocyte # (Auto) 0.0 0.0-0.1 10^3/uL Neutrophils % (Manual) 15 % Lymphocytes % (Manual) 22 % Monocytes % (Manual) 14 % Eosinophils % (Manual) 2 % Metamyelocytes % 6 % Band Neutrophils 40 % Atypical Lymphocytes 1 % Platelet Estimate NORMAL Polychromasia SLIGHT Hypochromasia Prothrombin Time 14.0 12.2-14.7 SEC INR Comment 1.0 0.8-1.4 Activated Partial Thromboplast Time 40 H 24-35 SEC Sodium Level 136 135-145 MMOL/L Potassium Level 3.4 L 3.6-5.0 MMOL/L Chloride Level 102 98-107 MMOL/L Carbon Dioxide Level 22 21-32 MMOL/L Anion Gap 12 5-14 MMOL/L Blood Urea Nitrogen 13 7-18 MG/DL Creatinine 1.02 0.60-1.30 MG/DL Estimat Glomerular Filtration Rate 59 BUN/Creatinine Ratio 13 Glucose Level 207 H 70-105 MG/DL Lactic Acid Level 1.46 0.50-2.00 MMOL/L Calcium Level 8.5 8.5-10.1 MG/DL Corrected Calcium 8.8 8.5-10.1 MG/DL Total Bilirubin 0.5 0.1-1.0 MG/DL Aspartate Amino Transf (AST/SGOT) 24 5-34 U/L Alanine Aminotransferase (ALT/SGPT) 22 0-55 U/L Alkaline Phosphatase 111 40-136 U/L Troponin I < 0.028 <0.028 NG/ML B-Type Natriuretic Peptide 108.2 H <100.0 PG/ML Total Protein 6.7 6.4-8.2 GM/DL Albumin 3.6 3.2-4.5 GM/DL Smear Scan YES Blood Gas Puncture Site L RAD Blood Gas Patient Temperature 36.2 Arterial Blood pH 7.42 7.37-7.43 Arterial Blood Partial Pressure CO2 39 35-45 MMHG Arterial Blood Partial Pressure O2 65 L 79-93 MMHG Arterial Blood HCO3 25 23-27 MMOL/L Arterial Blood Total CO2 25.9 21.0-31.0 MMOL/L Arterial Blood Oxygen Saturation 92 L 94-100 % Arterial Blood Base Excess 0.5 -2.5-2.5 MMOL/L Max Test YES-POS Blood Gas Ventilator Setting NO Blood Gas Inspired Oxygen 3.5L Influenza Type A (RT-PCR) Not Detected Not Detecte Influenza Type B (RT-PCR) Not Detected Not Detecte SARS-CoV-2 RNA (RT-PCR) Not Detected Not Detecte Micro Results Microbiology 07/08/22 Blood Culture - Preliminary, Resulted No growth 07/08/22 Blood Culture - Preliminary, Resulted My Orders Orders - ISABELLA GALAVIZ PA Albuterol/Ipra Inhalation Soln (Duoneb I (07/08/22 19:45) Svn Small Volume Nebulizer (07/08/22 19:33) Arterial Blood Gas (07/08/22 19:34) Cbc With Automated Diff (07/08/22 19:38) Comprehensive Metabolic Panel (07/08/22 19:38) Blood Culture (07/08/22 19:38) Sputum Culture (07/08/22 19:38) Urinalysis (07/08/22 19:38) Urine Culture (07/08/22 19:38) Protime With Inr (07/08/22 19:38) Partial Thromboplastin Time (07/08/22 19:38) Chest 1 View, Ap/Pa Only (07/08/22 19:38) Ed Iv/Invasive Line Start (07/08/22 19:38) Ed Iv/Invasive Line Start (07/08/22 19:38) Ekg Tracing (07/08/22 19:38) Troponin I Naima (07/08/22 19:38) O2 (07/08/22 19:38) Lactic Acid Analyzer (07/08/22 19:38) Influenza A And B By Pcr (07/08/22 19:38) Ns Iv 1000 Ml (Sodium Chloride 0.9%) (07/08/22 19:45) Ceftriaxone Iv/Im (Rocephin Iv/Im) (07/08/22 19:45) Covid 19 Inhouse Test (07/08/22 19:38) Bnp [place] (07/08/22 19:38) Albuterol Pre-Mix Nebs (Rt) (Proventil (07/08/22 20:00) Svn Small Volume Nebulizer (07/08/22 19:50) Methylprednisolone Sod Succ (Solu-Medrol (07/08/22 20:30) Albuterol Inhaler (Albuterol) (07/08/22 22:00) Doxycycline Injection (Vibramycin Inject (07/08/22 21:00) Furosemide Injection (Lasix Injection) (07/08/22 21:00) Manual Differential (07/08/22 19:25) Medications Given in ED Vital Signs/I&O 07/08/22 07/08/22 07/08/22 07/08/22 19:22 19:22 19:46 21:23 Temp 36.2 Pulse 106 113 Resp 26 17 B/P (MAP) 152/78 (102) 140/81 Pulse Ox 95 95 92 92 O2 Delivery Nasal Cannula Nasal Cannula Nasal Cannula Nasal Cannula O2 Flow Rate 2.00 3.50 3.00 3.00 3.00 Capillary Refill : ECG Comment Sinus tachycardia, possible left atrial enlargement, 101 bpm, QRS duration 85 MS, QTc 332 MS Departure Communication (Admissions) Time/Spoke to Admitting Phy: 20:58 Dr. Hernández accepts patient. Communication (PCP) Patient with flulike symptoms. Cough and shortness of breath worse today. She took 60 mg of prednisone at home with cough medication but states she was having difficulty breathing. On arrival oxygen 85% on room air. She was placed on 3 L of nasal cannula. Wheezing throughout with diminished breath sounds. She received a DuoNeb breathing treatment and a second albuterol treatment. Received 80 mg IV Solu-Medrol. Cardiac work-up, chest x-ray, COVID influenza and sepsis work-up due to the tachycardia and concern for pneumonia. No history of CHF, coronary artery disease. No appreciation of lower leg swelling. Shortness of breath is worse with walking. She does have a cough. She states she was diagnosed with a form of asthma by [facility]. She does not have a nebulizer at home. She is currently on allergy medication. She states she recently returned from [facility] and states the change in environment may be contributing to her symptoms. CBC grossly unremarkable. CMP showed potassium 3.4. Blood sugar 200. Normal troponin slight elevated BNP 108. ABG secondary to the hypoxia showed normal pH but did show PO2 of 65. Normal PCO2. She has no history of COPD. Breathing continue improved after breathign treatments. No retractions or abdominal breathing. She did not require any more oxygen. Chest x-ray concerning for bibasilar infiltrate versus pulmonary edema. She received Rocephin. Allergy to clear to clarithomycin patient was given IV doxycycline. She received 20 mg IV Lasix secondary to the pulmonary congestion which could be contributing to her shortness of breath. Patient was discussed with Dr. HERNÁNDEZ her primary care physician. Recommended admission for IV antibiotics and cardiac consult. Patient will be admitted for further evaluation. Impression Primary Impression: Pneumonia Additional Impressions: Pulmonary edema Hypoxia Disposition: ADMITTED INPATIENT Condition: Stable Admissions Decision to Admit Reason: Admit from ER (General) Decision to Admit/Date: July 08, 2022 Time/Decision to Admit Time: 20:57 Departure-Patient Inst. Referrals: ANTONIO HERNÁNDEZ MD (PCP/Family) Primary Care Physician ISABELLA GALAVIZ July 08, 2022 19:43
[2022-07-08 19:44] LABS: ALLENS TEST YES-POS; INSPIRED O2 3.5L; PATIENT TEMP 36.2; VENTILATOR NO
[2022-07-08 19:45] LABS: BASOPHILS % (AUTO) 1 % (0-10); EOSINOPHILS # (AUTO) 0.1 10^3/uL (0.0-0.3); EOSINOPHILS % (AUTO) 2 % (0-10); HEMATOCRIT 39 % (35-52); HEMOGLOBIN 13.5 g/dL (11.5-16.0); LYMPHOCYTES # (AUTO) 1.2 10^3/uL (1.0-4.0); LYMPHOCYTES % (AUTO) 19 % (12-44); MEAN CORPUSCULAR HEMOGLOBIN 34 pg (25-34); MEAN CORPUSCULAR HGB CONC 35 g/dL (32-36); MEAN CORPUSCULAR VOLUME 98 fL (80-99); MEAN PLATELET VOLUME 10.6 fL (9.0-12.2); MONOCYTES # (AUTO) 0.9 10^3/uL (0.0-1.0); MONOCYTES % (AUTO) 15 % (0-12); NEUTROPHILS # (AUTO) 3.8 10^3/uL (1.8-7.8); NEUTROPHILS % (AUTO) 62 % (42-75); PLATELET COUNT 247 10^3/uL (130-400); WHITE BLOOD COUNT 6.1 10^3/uL (4.3-11.0)
[2022-07-08] MEDS ORDERED: NS IV 1000 ML 1,000 ML IV SCH (19:45)
[2022-07-08] MEDS ORDERED: RT-ALBUTEROL/IPRATROPIUM 3 ML (DUONEB) VIAL INH ONE (19:45)
[2022-07-08] MEDS ORDERED: cefTRIAXone IV/IM 1,000 MG in NS (IVPB) 50 ML IV ONE (19:45)
[2022-07-08 19:48] LABS: SMEAR SCAN COMMENT YES
[2022-07-08] MEDS ORDERED: RT-ALBUTEROL SULF 2.5 MG/3 ML PRE-MIX VIAL INH ONE (20:00)
[2022-07-08 20:03] LABS: ALANINE AMINOTRANSFERASE 22 U/L (0-55); ALBUMIN 3.6 GM/DL (3.2-4.5); ALKALINE PHOSPHATASE 111 U/L (40-136); BILIRUBIN,TOTAL 0.5 MG/DL (0.1-1.0); BUN/CREATININE RATIO 13; CALCIUM 8.5 MG/DL (8.5-10.1); CARBON DIOXIDE 22 MMOL/L (21-32); CHLORIDE 102 MMOL/L (98-107); CREATININE SERUM 1.02 MG/DL (0.60-1.30); GFR ESTIMATED 59; GLUCOSE 207 MG/DL (70-105); POTASSIUM 3.4 MMOL/L (3.6-5.0); SODIUM 136 MMOL/L (135-145); TOTAL PROTEIN 6.7 GM/DL (6.4-8.2)
[2022-07-08] MEDS ORDERED: methylPREDNISolone 40 MG/ML (Solu-MEDROL) VIAL IV ONE (20:30)
--- NOTE | 2022-07-08 20:38 | Diagnostic Imaging Report ---
CHEST 1 VIEW, AP/PA ONLY INDICATION: cough. COMPARISON: Chest radiograph on 01/12/2014. FINDINGS: Lungs: Normal lung volume. Perihilar and bibasilar airspace opacities. Pleura: No pleural effusion or pneumothorax. Heart and Mediastinum: Cardiomegaly with pulmonary vascular congestion. Osseous Structures and Soft Tissues: No acute osseous abnormality. Normal soft tissues. IMPRESSION: Perihilar and bibasilar airspace opacities may be seen with pulmonary edema or infection. Cardiomegaly with pulmonary vascular congestion. Dictated by: Dictated on workstation # [id number]
[2022-07-08] MEDS ORDERED: FUROSEMIDE 40 MG/4 ML INJ (LASIX) IVP ONE (21:00)
[2022-07-08] MEDS ORDERED: DOXYCYCLINE INJECTION 100 MG in NS (IVPB) 100 ML IV ONE (21:00)
[2022-07-08 21:08] LABS: ATYPICAL LYMPHOCYTES 1 %; BAND NEUTROPHILS 40 %; EOSINOPHILS % (MANUAL) 2 %; LYMPHOCYTES % (MANUAL) 22 %; METAMYELOCYTES % 6 %; MONOCYTES % (MANUAL) 14 %; NEUTROPHILS % (MANUAL) 15 %
[2022-07-08 21:10] LABS: PLATELET ESTIMATE NORMAL
[2022-07-08 21:11] LABS: POLYCHROMASIA SLIGHT
[2022-07-08] MEDS ORDERED: RT-ALBUTEROL HFA 8.5 GM INHALER IH SCH (22:00)
[2022-07-08] MEDS ORDERED: RT-ALBUTEROL HFA 8.5 GM INHALER IH PRN ×2 (22:45)
[2022-07-08] MEDS: ZOLPIDEM 5 MG (AMBIEN) TAB PO PRN (23:22)
[2022-07-08] MEDS: BENZONATATE 100 MG (TESSALON) CAPSULE PO PRN (23:22)
[2022-07-08] MEDS: guaiFENesin/CODEINE (ROBITUSSIN AC) 10ML UDC PO PRN (23:26)
[2022-07-08 23:30] VITALS: BP 160/70
[2022-07-09] MEDS: RT-ALBUTEROL/IPRATROPIUM 3 ML (DUONEB) VIAL INH SCH ×6 (02:42→22:26)
[2022-07-09 03:57] VITALS: BP 161/80
[2022-07-09 04:57] LABS: BASOPHILS # (AUTO) 0.1 10^3/uL (0.0-0.1); BASOPHILS % (AUTO) 1 % (0-10); EOSINOPHILS % (AUTO) 0 % (0-10); HEMATOCRIT 36 % (35-52); HEMOGLOBIN 12.2 g/dL (11.5-16.0); LYMPHOCYTES # (AUTO) 0.9 10^3/uL (1.0-4.0); LYMPHOCYTES % (AUTO) 8 % (12-44); MEAN CORPUSCULAR HEMOGLOBIN 34 pg (25-34); MEAN CORPUSCULAR HGB CONC 34 g/dL (32-36); MEAN CORPUSCULAR VOLUME 99 fL (80-99); MEAN PLATELET VOLUME 10.7 fL (9.0-12.2); MONOCYTES # (AUTO) 0.8 10^3/uL (0.0-1.0); MONOCYTES % (AUTO) 8 % (0-12); NEUTROPHILS # (AUTO) 8.8 10^3/uL (1.8-7.8); NEUTROPHILS % (AUTO) 82 % (42-75); PLATELET COUNT 211 10^3/uL (130-400); WHITE BLOOD COUNT 10.7 10^3/uL (4.3-11.0)
[2022-07-09 05:21] LABS: POTASSIUM 3.4 MMOL/L (3.6-5.0)
[2022-07-09 05:22] LABS: CALCIUM 8.1 MG/DL (8.5-10.1)
[2022-07-09 05:27] LABS: CREATININE SERUM 0.77 MG/DL (0.60-1.30)
[2022-07-09] MEDS: CATHETER FLUSH 10 ML SYR IVP SCH ×3 (06:06→22:10)
[2022-07-09 08:00] VITALS: BP 140/77
[2022-07-09] MEDS: guaiFENesin/CODEINE (ROBITUSSIN AC) 10ML UDC PO PRN ×2 (08:22→16:42)
[2022-07-09] MEDS: DOXYCYCLINE INJECTION 100 MG in NS (IVPB) 100 ML IV SCH ×2 (08:23→20:53)
[2022-07-09] MEDS ORDERED: methylPREDNISolone 40 MG/ML (Solu-MEDROL) VIAL IV SCH (09:00)
--- NOTE | 2022-07-09 09:12 | Consultation-Cardiology ---
HPI-Cardiology Cardiology Consultation Date of Consultation 07/09/22 Date of Admission Time Seen by Provider: 09:07 Indication: Chest pain HPI 72-year-old lady with history of hypertension, was on a road trip to [facility] when she reported that she lost initially her voice then started to have increasing cough. Became more worse, had shortness of breath with productive cough of whitish sputum. Reported chest pain in the retrosternal area with dull achiness. Came into the emergency room and she was admitted for pneumonia. Currently she is laying down in bed, feeling better, denied any active pain. Noted to have minimal elevation in BNP. Home Medications & Allergies Allergies: Coded Allergies: clarithromycin (Unverified Allergy, Mild, 05/17/06) nitrofurantoin (Unverified Allergy, Mild, 05/17/06) sulfamethoxazole (Unverified Allergy, Mild, 05/17/06) trimethoprim (Unverified Allergy, Mild, 05/17/06) codeine (Verified Adverse Reaction, Unknown, NAUSEA, 07/08/22) Home Medication List Reviewed: Yes [id number] Hx Patient Social History Marital Status: Employed/Student: employed Smoking Status: Never a Smoker Recent Hopitalizations: No Have you traveled recently?: Yes Where was recent travel?: [place] Alcohol Use?: Yes Immunizations Up To Date Date of Pneumonia Vaccine: Apr 09, 2013 Date of Influenza Vaccine: Nov 07, 2014 Past Medical History Discussed below Family Medical History Significant Family History: No Pertinent Family Hx Family History: Alcoholism Arthritis Asthma Completed stroke Hypertension Psychosocial problem Respiratory disorder No Family History of: AIDS Abdominal aortic aneurysm Vito's disease Alzheimer's disease Aphasia Cancer of mouth Cardiovascular disease Cataracts Colon cancer Congenital disease Congenital heart disease Coronary thrombosis Cystic fibrosis Deafness or hearing loss Dementia Diabetes mellitus Dysphasia Fibrocystic disease of breast Gastroenteritis Glaucoma Headache disorder Hypercholesterolemia Infertility Kidney disease Neoplasm Not obtainable due to adoption Osteoporosis Parkinson's disease Prostate cancer Seizure disorder Severe allergy Thyroid disease Tuberculosis Visual disorder Review of Systems-General Review of Systems Constitutional: chills, malaise, weakness EENTM: hoarseness, throat pain; No ear pain, No blurred vision, No mouth pain, No mouth swelling Respiratory: see HPI, cough, dyspnea on exertion; No hemoptysis, No orthopnea; phlegm, short of breath; No stridor, No wheezing, No other Cardiovascular: see HPI, chest pain; No edema, No Hx of Intervention, No palpitations, No syncope, No vascular heart diseas, No other Gastrointestinal: No abdominal pain, No diarrhea, No nausea, No vomiting Genitourinary: No decreased output, No discharge Musculoskeletal: No back pain, No gout Skin: no symptoms reported, see HPI Psychiatric/Neurological: Denies Anxiety, Denies Depressed All Other Systems Reviewed Negative Unless Noted: Yes Reviewed Test Results Reviewed Test Results Lab Laboratory Tests Test 07/08/22 19:25 07/08/22 19:35 07/08/22 19:56 07/09/22 04:30 Range/Units White Blood Count 6.1 10.7 4.3-11.0 10^3/uL Red Blood Count 3.92 3.62 L 3.80-5.11 10^6/uL Hemoglobin 13.5 12.2 11.5-16.0 g/dL Hematocrit 39 36 35-52 % Mean Corpuscular Volume 98 99 80-99 fL Mean Corpuscular Hemoglobin 34 34 25-34 pg Mean Corpuscular Hemoglobin Concent 35 34 32-36 g/dL Red Cell Distribution Width 12.9 12.7 10.0-14.5 % Platelet Count 247 211 130-400 10^3/uL Mean Platelet Volume 10.6 10.7 9.0-12.2 fL Immature Granulocyte % (Auto) 1 1 % Neutrophils (%) (Auto) 62 82 H 42-75 % Lymphocytes (%) (Auto) 19 8 L 12-44 % Monocytes (%) (Auto) 15 H 8 0-12 % Eosinophils (%) (Auto) 2 0 0-10 % Basophils (%) (Auto) 1 1 0-10 % Neutrophils # (Auto) 3.8 8.8 H 1.8-7.8 10^3/uL Lymphocytes # (Auto) 1.2 0.9 L 1.0-4.0 10^3/uL Monocytes # (Auto) 0.9 0.8 0.0-1.0 10^3/uL Eosinophils # (Auto) 0.1 0.0 0.0-0.3 10^3/uL Basophils # (Auto) 0.0 0.1 0.0-0.1 10^3/uL Immature Granulocyte # (Auto) 0.0 0.1 0.0-0.1 10^3/uL Neutrophils % (Manual) 15 % Lymphocytes % (Manual) 22 % Monocytes % (Manual) 14 % Eosinophils % (Manual) 2 % Metamyelocytes % 6 % Band Neutrophils 40 % Atypical Lymphocytes 1 % Platelet Estimate NORMAL Polychromasia SLIGHT Hypochromasia Prothrombin Time 14.0 12.2-14.7 SEC INR Comment 1.0 0.8-1.4 Activated Partial Thromboplast Time 40 H 24-35 SEC Sodium Level 136 138 135-145 MMOL/L Potassium Level 3.4 L 3.4 L 3.6-5.0 MMOL/L Chloride Level 102 103 98-107 MMOL/L Carbon Dioxide Level 22 20 L 21-32 MMOL/L Anion Gap 12 15 H 5-14 MMOL/L Blood Urea Nitrogen 13 11 7-18 MG/DL Creatinine 1.02 0.77 0.60-1.30 MG/DL Estimat Glomerular Filtration Rate 59 82 BUN/Creatinine Ratio 13 14 Glucose Level 207 H 198 H 70-105 MG/DL Lactic Acid Level 1.46 0.50-2.00 MMOL/L Calcium Level 8.5 8.1 L 8.5-10.1 MG/DL Corrected Calcium 8.8 8.5-10.1 MG/DL Total Bilirubin 0.5 0.1-1.0 MG/DL Aspartate Amino Transf (AST/SGOT) 24 5-34 U/L Alanine Aminotransferase (ALT/SGPT) 22 0-55 U/L Alkaline Phosphatase 111 40-136 U/L Troponin I < 0.028 <0.028 NG/ML B-Type Natriuretic Peptide 108.2 H <100.0 PG/ML Total Protein 6.7 6.4-8.2 GM/DL Albumin 3.6 3.2-4.5 GM/DL Smear Scan YES Blood Gas Puncture Site L RAD Blood Gas Patient Temperature 36.2 Arterial Blood pH 7.42 7.37-7.43 Arterial Blood Partial Pressure CO2 39 35-45 MMHG Arterial Blood Partial Pressure O2 65 L 79-93 MMHG Arterial Blood HCO3 25 23-27 MMOL/L Arterial Blood Total CO2 25.9 21.0-31.0 MMOL/L Arterial Blood Oxygen Saturation 92 L 94-100 % Arterial Blood Base Excess 0.5 -2.5-2.5 MMOL/L Max Test YES-POS Blood Gas Ventilator Setting NO Blood Gas Inspired Oxygen 3.5L Influenza Type A (RT-PCR) Not Detected Not Detecte Influenza Type B (RT-PCR) Not Detected Not Detecte SARS-CoV-2 RNA (RT-PCR) Not Detected Not Detecte Physical Exam Physical Exam Vital Signs Vital Signs - First Documented 07/08/22 23:29 FiO2 32 Capillary Refill : Less Than 3 Seconds Height, Weight, BMI Height: 5'6.00" Weight: 160lbs. 0.0oz. [id number]; 68.62 BMI Method:Estimated General Appearance: No Apparent Distress, WD/WN Eyes: Bilateral Eye Normal Inspection, Bilateral Eye PERRL, Bilateral Eye EOMI HEENT: PERRL/EOMI, TMs Normal, Normal ENT Inspection, Pharynx Normal, Moist Mucous Membranes Neck: Full Range of Motion, Normal Inspection, Non Tender, Supple, Carotid Bruit Respiratory: Chest Non Tender, Normal Breath Sounds, No Accessory Muscle Use, No Respiratory Distress Cardiovascular: Regular Rate, Rhythm, No Edema, No Gallop, No JVD, No Murmur, Normal Peripheral Pulses Gastrointestinal: Normal Bowel Sounds, No Organomegaly, No Pulsatile Mass, Non Tender, Soft Back: Normal Inspection, No CVA Tenderness, No Vertebral Tenderness Extremity: Normal Capillary Refill, Normal Inspection, Normal Range of Motion, Non Tender, No Calf Tenderness, No Pedal Edema Neurologic/Psychiatric: Alert, Oriented x3, No Motor/Sensory Deficits, Normal Mood/Affect Skin: Normal Color, Warm/Dry Lymphatic: No Adenopathy A/P-Cardiology Admission Diagnosis Pneumonia Chest pain Shortness of breath Pulmonary edema Assessment/Plan Pneumonia, increasing shortness of breath with cough. Started on Rocephin and doxycycline. Reporting improvement Chest pain, nonspecific etiology, most probably musculoskeletal, cardiac enzymes are normal, EKG did not show any acute abnormality I will evaluate 2D echo We will consider evaluating stress test in the future as an outpatient Hypoxemia and shortness of breath secondary to pneumonia Questionable pulmonary edema on chest x-ray, will repeat chest x-ray PA and lateral She received Lasix. Had mild elevation in BNP We will evaluate 2D echo Hypothyroidism, followed and managed by primary care physician Hyperlipidemia, maintained on atorvastatin as an outpatient. Hypertension, blood pressure is better at this point, continue to monitor THEO JESSICA MD July 09, 2022 09:12
--- NOTE | 2022-07-09 10:07 | History & Physical ---
History of Present Illness History of Present Illness Reason for visit/HPI Pt is a 72 y/o female who is known to me from clinic. Belgica was admitted to the hospital after having shortness of breath and a cough that progressed over the past week while she was on a bus trip to [place], [place]. She thought it was allergies from the trees and pollen she was not used to breathing in as well as the pollution of the city. She states that she had so much mucous and discharge that she really had a hard time breathing correctly. She states that she was barely drinking or urinating yesterday - she went to the restroom 2 times in over 9 hours. She feels better currently, less short of breath. Date of Admission July 08, 2022 at 21:47 Date Seen by a Provider: July 09, 2022 Time Seen by a Provider: 09:00 I consulted on this patient on 07/09/22 10:07 Attending Physician Antonio Hernnádez MD Admitting Physician Admitting Physician: Antonio Hernández MD Attending Physician: Antonio Hernández MD Consult Dr. JESSICA Allergies and Home Medications Allergies Coded Allergies: clarithromycin (Unverified Allergy, Mild, 05/17/06) nitrofurantoin (Unverified Allergy, Mild, 05/17/06) sulfamethoxazole (Unverified Allergy, Mild, 05/17/06) trimethoprim (Unverified Allergy, Mild, 05/17/06) codeine (Verified Adverse Reaction, Unknown, NAUSEA, 07/08/22) Patient Home Medication List Home Medication List Reviewed: Yes Amitriptyline HCl (Amitriptyline HCl) 25 Mg Tablet, 12.5 MG PO HS, (Reported) Entered as Reported by: ALBA LEIJA on 09/25/15 0921 Last Action: Reviewed Ascorbic Acid (Vitamin C) 1,000 Mg Tablet, 1,000 MG PO DAILY, (Reported) Entered as Reported by: CHARLIE CRESPO on 09/22/15 1613 Last Action: Held Ascorbic Acid/Vitamin E/Biotin (Hair Skin Nails-Biotin Gummies) 1 Each Tab.chew, 1 TAB PO DAILY, (Reported) Entered as Reported by: OSWALDO YANES on 04/03/15 1458 Last Action: Held Atorvastatin Calcium (Atorvastatin Calcium) 10 Mg Tablet, 10 MG PO HS, (Reported) Entered as Reported by: CHARLIE CRESPO on 10/26/181545 Last Action: Held Calcium Carbonate/Vitamin D3 (Calcium 600 + Vit D3 Tablet) 1 Each Tablet, 1 TAB PO BID, (Reported) Entered as Reported by: CHARLIE CRESPO on 09/22/151612 Last Action: Held Citalopram Hydrobromide (Celexa) 20 Mg Tablet, 10 MG PO HS, (Reported) Entered as Reported by: ALBA LEIJA on 09/25/1517 Last Action: Held Estradiol (Estradiol Tablet) 2 Mg Tablet, 2 MG PO HS, (Reported) Entered as Reported by: CHARLIE CRESPO on 09/22/151612 Last Action: Held Fexofenadine HCl (Fexofenadine HCl) 180 Mg Tablet, 180 MG PO HS, (Reported) Entered as Reported by: ALBA LEIJA on 09/25/15 0902 Last Action: Held Fish Oil/Dha/Epa (Fish Oil 1,200 mg Fish Oil) 1 Each Capsule, 1 CAP PO BID, (Reported) Entered as Reported by: CHARLIE CRESPO on 09/22/151612 Last Action: Held L.acidoph & Paracasei,B.lactis (Probiotic) 1 Each Capsule, 1 CAP PO DAILY, (Reported) Entered as Reported by: CHARLIE CRESPO on 09/22/151612 Last Action: Held Levothyroxine Sodium (Levothyroxine Sodium) 125 Mcg Tablet, 125 MCG PO DAILY, (Reported) Entered as Reported by: CHARLIE CRESPO on 10/26/181545 Last Action: Held Multivitamin (Multivitamins) 1 Each Tablet, 1 EACH PO DAILY, (Reported) Entered as Reported by: CHARLIE CRESPO on 10/26/181545 Last Action: Held Omeprazole (Omeprazole) 20 Mg Tablet.dr, 20 MG PO DAILY, (Reported) Entered as Reported by: CHARLIE CRESPO on 10/26/181547 Last Action: Held Turmeric Root Extract (Turmeric) 538 Mg Capsule, 538 MG PO DAILY, (Reported) Entered as Reported by: CHARLIE CRESPO on 10/26/181545 Last Action: Held Vit A/C/E/Zinc/Co (Preservision Areds Softgel) 1 Cap Capsule, 1 CAP PO BID, (Reported) Entered as Reported by: OSWALDO YANES on 04/03/15 6012 Last Action: Held Past Pookmrw-Yvxxro-Xtwwxy Hx Patient Social History Marrital Status: Living Status: lives in [place] with spouse "Rack" Employed/Student: employed Tobacco Use?: No Smoking Status: Never a Smoker (she did have second hand smoke exposure growing up as a child) Smokeless Tobacco Frequency: Never a User Use of E-Cig and/or Vaping dev: No Substance use?: No Alcohol Use?: Yes Alcohol type: Hard Liquor, Wine Alcohol Frequency: Several times a month Additional Alcohol Comments: wine, gin Pt feels they are or have been: No Immunizations Up To Date Date of Influenza Vaccine: Nov 07, 2014 Tetanus Booster (TDap): Less Than 5 Years Hepatitis A: No Hepatitis B: No Date of Pneumonia Vaccine: Apr 09, 2013 Seasonal Allergies Seasonal Allergies: Yes Current Status status: No status: No Advance Directives: Yes Advance Directive Location: Family to bring in copy Communicates: Verbally Primary Language: Malawian Preferred Spoken Language: Malawian Is interpretation needed?: No Sensory deficits: Vision impairment, Hearing impairment Implanted or Applied Medical D: None, Orthopedic hardware Past Medical History Surgeries: Hysterectomy Sexually Transmitted Disease: No HIV/AIDS: No Gastroesophageal Reflux, Hiatal Hernia Hypothyroidsim Loss of Vision: Bilateral Anxiety Blood Disorders: No Family Medical History Reviewed Nursing Family Hx Alcoholism Arthritis Asthma Completed stroke Hypertension Psychosocial problem Respiratory disorder No Family History of: AIDS Abdominal aortic aneurysm Ascension's disease Alzheimer's disease Aphasia Cancer of mouth Cardiovascular disease Cataracts Colon cancer Congenital disease Congenital heart disease Coronary thrombosis Cystic fibrosis Deafness or hearing loss Dementia Diabetes mellitus Dysphasia Fibrocystic disease of breast Gastroenteritis Glaucoma Headache disorder Hypercholesterolemia Infertility Kidney disease Neoplasm Not obtainable due to adoption Osteoporosis Parkinson's disease Prostate cancer Seizure disorder Severe allergy Thyroid disease Tuberculosis Visual disorder Heart Disease, Hypertension, Psychiatric Problems, Stroke, Other Conditions/Hx Review of Systems Constitutional: No chills, No diaphoresis, No fever; malaise, weakness EENTM: mouth pain, other (sore in mouth on right); No hoarseness, No throat pain Respiratory: cough, dyspnea on exertion, short of breath Cardiovascular: No chest pain, No edema, No palpitations Gastrointestinal: No abdominal pain, No constipation, No diarrhea, No loss of appetite, No nausea, No vomiting Genitourinary: no symptoms reported Musculoskeletal: No back pain; muscle weakness Skin: no symptoms reported Psychiatric/Neurological: Denies Anxiety, Denies Depressed; Weakness All Other Systems Reviewed Negative Unless Noted: Yes Physical Exam Vital Signs Vital Signs - First Documented 07/08/22 23:29 FiO2 32 Capillary Refill : Less Than 3 Seconds Height, Weight, BMI Height: 5'6.00" Weight: 160lbs. 0.0oz. [id number]; 68.62 BMI Method:Estimated General Appearance: WD/WN, Mild Distress (with coughing) HEENT: PERRL/EOMI, Pharynx Normal, Other (inflamed slightly ulcerated area right lower gumline near teeth ) Neck: Full Range of Motion, Supple Respiratory: Chest Non Tender, Crackles, Decreased Breath Sounds, Rhonci Cardiovascular: Regular Rate, Rhythm, No Edema, No Murmur, Normal Peripheral Pulses Gastrointestinal: Normal Bowel Sounds, Non Tender, Soft Rectal: Deferred Extremity: Normal Capillary Refill, Non Tender, No Calf Tenderness Neurologic/Psychiatric: Alert, Oriented x3, No Motor/Sensory Deficits, Normal Mood/Affect Skin: Normal Color, Warm/Dry Lymphatic: No Adenopathy Assessment/Plan Assessment and Plan Pneumonia Acute respiratory distress Acute Hypoxemia Cough Chronic Hypertension Chronic Hypothyroidism Chronic depression and anxiety Pneumonia with Acute respiratory distress and Acute Hypoxemia with persistent Cough - pt admitted to the hospital, started on IV antibiotics, IV steroids, and breathing treatments with albuterol inhaler (not on nebs due to nationwide shortages) - will adjust steroid to be lower dose, but more frequent dosing - continue with cough medication, added mucinex, she is doing Incentive spirometry and EZ pap device - pt instructed in the use. Chronic Hypertension - resume home regimen, consult to cardiology due to her pulmonary edema Chronic Hypothyroidism - resume levothyroxine at 100mcg daily - from clinic charting. Chronic depression and anxiety - restart celexa at 20mg daily (from clinic chart review) dvt prophylaxis with scd's and lovenox gi prophylaxis with protonix plan dc tuesday or tuesday pending her symptoms. Admission Diagnosis Pneumonia Acute respiratory distress Acute Hypoxemia Cough Chronic Hypertension Chronic Hypothyroidism Chronic depression and anxiety Admission Status: Inpatient Order (span 2 midnights) Reason for Inpatient Admission: inpatient admission for pneumonia with respiratory distress and new oxygen requirement - will require 48 - 72 hours in the hospital for treatment of illness ANTONIO HERNÁNDEZ MD July 09, 2022 10:07
[2022-07-09] MEDS: guaiFENesin (MUCINEX) 600 MG TAB PO SCH ×2 (10:19→20:14)
[2022-07-09] MEDS ORDERED: KCL 20 MEQ TAB (K-DUR) PO NR (10:30)
--- NOTE | 2022-07-09 11:52 | Diagnostic Imaging Report ---
INDICATION: Dyspnea. COMPARISON: 07/08/2022 FINDINGS: Frontal and lateral radiograph views of the chest were obtained and show normal cardiac silhouette. Pulmonary vascular congestion persists. There is also diffuse coarse prominence interstitium. There may be slight interval improved aeration of the right base. No large effusion or pneumothorax is seen. Osseous structures show no gross acute abnormalities. IMPRESSION: 1. Improved aeration of the lung bases, but with persistent diffuse coarse prominence interstitium, which may be on the basis of interstitial pneumonia or edema. Edema may be favored given the associated prominence of the pulmonary vasculature. Clinical correlation is advised. Dictated by: Dictated on workstation # [id number]
[2022-07-09 12:00] VITALS: BP 156/60
[2022-07-09] MEDS: methylPREDNISolone 40 MG/ML (Solu-MEDROL) VIAL IV SCH ×2 (12:18→20:14)
[2022-07-09] MEDS: ACYCLOVIR 400 MG TABLET (ZOVIRAX) PO SCH ×3 (12:19→20:14)
[2022-07-09 15:20] VITALS: BP 148/80
[2022-07-09] MEDS ORDERED: PANTOPRAZOLE 40 MG (PROTONIX) TAB PO NR (16:30)
[2022-07-09] MEDS: ENOXAPARIN 40 MG/0.4 ML (LOVENOX) SYR SC SCH (17:28)
[2022-07-09 19:10] VITALS: BP 141/89
[2022-07-09] MEDS: cefTRIAXone 1 GM/NS 50 ML IVPB IV SCH ×2 (20:14)
[2022-07-09] MEDS: ZOLPIDEM 5 MG (AMBIEN) TAB PO PRN (21:49)
[2022-07-10] VITALS: BP 132/64
[2022-07-10] MEDS: RT-ALBUTEROL/IPRATROPIUM 3 ML (DUONEB) VIAL INH SCH ×6 (02:34→21:50)
[2022-07-10 04:00] VITALS: BP 155/90
[2022-07-10 04:43] LABS: POTASSIUM 3.8 MMOL/L (3.6-5.0)
[2022-07-10 04:44] LABS: CALCIUM 8.7 MG/DL (8.5-10.1)
[2022-07-10 04:49] LABS: CREATININE SERUM 0.71 MG/DL (0.60-1.30)
[2022-07-10] MEDS: ACYCLOVIR 400 MG TABLET (ZOVIRAX) PO SCH ×5 (06:13→20:23)
[2022-07-10] MEDS: CATHETER FLUSH 10 ML SYR IVP SCH ×3 (06:13→22:19)
[2022-07-10] MEDS: LEVOTHYROXINE 100 MCG (LEVOTHROID) TAB PO SCH (06:13)
[2022-07-10 07:40] VITALS: BP 152/86
[2022-07-10] MEDS ORDERED: CALCIUM CARBONATE 500 MG (TUMS) TAB.CHEW PO PRN (08:00)
--- NOTE | 2022-07-10 08:02 | Progress Note ---
Subjective Date Seen by a Provider: July 10, 2022 Time Seen by a Provider: 07:59 Subjective/Events-last exam Fwup acute respiratory distress/hypoxia, acute pneumonia, HTN. C/O ongoing cough. C/O reflux. Focused Exam Lactate Level 07/08/22 19:25: Lactic Acid Level 1.46 Objective Exam Vital Signs Date Time Temp Pulse Resp B/P (MAP) Pulse Ox O2 Delivery O2 Flow Rate FiO2 07/10/22 07:40 37.1 96 15 152/86 (108) 95 Room Air 07/10/22 07:35 96 Room Air 07/10/22 07:00 93 07/10/22 04:00 36.3 07/10/22 04:00 87 21 155/90 (111) Room Air 07/10/22 01:00 103 07/10/22 00:00 37.1 103 26 132/64 (86) 94 Room Air 07/09/22 22:26 96 Room Air 07/09/22 20:00 94 Room Air 07/09/22 19:10 37.4 105 22 141/89 (106) 94 Room Air 07/09/22 19:00 105 07/09/22 18:18 96 Room Air 07/09/22 15:20 37.1 106 15 148/80 (102) 95 Room Air 07/09/22 14:54 100 Nasal Cannula 2.00 07/09/22 13:00 100 07/09/22 12:00 36.7 108 22 156/60 (92) 100 Nasal Cannula 2.00 07/09/22 11:00 100 Nasal Cannula 2.00 07/09/22 08:00 100 Nasal Cannula 2.00 07/09/22 08:00 36.4 93 22 140/77 (98) 96 Nasal Cannula 2.00 I & O 07/10/22 07:00 Intake Total 2145 ml Output Total 1900 ml Balance 245 ml Capillary Refill : Less Than 3 Seconds General Appearance: Mild Distress Respiratory: Crackles, Decreased Breath Sounds Cardiovascular: Regular Rate, Rhythm, Systolic Murmur Gastrointestinal: normal bowel sounds, non tender, soft Neurologic/Psychiatric: Alert, Oriented x3 Results Lab Laboratory Tests 07/10/22 04:10: Sodium Level 137, Potassium Level 3.8, Chloride Level 104, Carbon Dioxide Level 21, Anion Gap 12, Blood Urea Nitrogen 11, Creatinine 0.71, Estimat Glomerular Filtration Rate 91, BUN/Creatinine Ratio 15, Glucose Level 149H, Calcium Level 8.7 Microbiology 07/08/22 Blood Culture - Preliminary, Resulted No growth Assessment/Plan Assessment/Plan Assess & Plan/Chief Complaint 1. Acute Respiratory Distress/Hypoxia--on oxygen via NC 2. Acute Pneumonia--on Rocephin and doxycycline 3. HTN/Tachycardia--start low dose metoprolol 4. GERD--increase protonix to BID dosing KORI MAYS DO July 10, 2022 08:02
[2022-07-10] MEDS: PANTOPRAZOLE 40 MG (PROTONIX) TAB PO SCH ×2 (08:24→20:22)
[2022-07-10] MEDS: methylPREDNISolone 40 MG/ML (Solu-MEDROL) VIAL IV SCH ×3 (08:25→20:21)
[2022-07-10] MEDS: guaiFENesin (MUCINEX) 600 MG TAB PO SCH ×2 (08:25→20:22)
[2022-07-10] MEDS: DOXYCYCLINE INJECTION 100 MG in NS (IVPB) 100 ML IV SCH ×2 (08:25→21:06)
[2022-07-10] MEDS: guaiFENesin/CODEINE (ROBITUSSIN AC) 10ML UDC PO PRN ×4 (08:57→23:58)
--- NOTE | 2022-07-10 08:57 | Diagnostic Imaging Report ---
INDICATION: Dyspnea. Comparison is made with prior exam of 07/09/2022. FINDINGS: There is cardiomegaly. There is some right basilar subsegmental atelectasis and/or pneumonitis. No pleural effusion or pneumothorax. Mediastinum unremarkable. IMPRESSION: Cardiomegaly with some right basilar subsegmental atelectasis and/or pneumonitis. Dictated by: Dictated on workstation # [id number]
[2022-07-10] MEDS ORDERED: PANTOPRAZOLE 40 MG (PROTONIX) TAB PO SCH (09:00)
[2022-07-10 11:32] VITALS: BP 139/67
--- NOTE | 2022-07-10 12:28 | Progress Note - Cardiology ---
Cardiology SOAP Progress Note Subjective: Shortness of breath modestly improved No cp or palp or syncope No swelling Gen weakness and malaise No focal weakness No n/v/d Objective: I&O/Vital Signs 07/10/22 07/10/22 07/10/22 07/10/22 01:00 04:00 04:00 07:00 Temp 36.3 Pulse 103 87 93 Resp 21 B/P (MAP) 155/90 (111) O2 Delivery Room Air 07/10/22 07/10/22 07/10/22 07/10/22 07:35 07:40 09:31 10:16 Temp 37.1 Pulse 96 Resp 15 B/P (MAP) 152/86 (108) Pulse Ox 96 95 93 O2 Delivery Room Air Room Air Room Air Room Air 07/10/22 11:32 Temp 36.4 Pulse 91 Resp 18 B/P (MAP) 139/67 (91) Pulse Ox 95 O2 Delivery Room Air 07/09/22 23:59 Intake Total 1645 ml Output Total 1200 ml Balance 445 ml Weight (Pounds): 160 Weight (Ounces): 0.0 Weight (Calculated Kilograms): 72.625472 Constitutional: AAO x 3, well-developed, well-nourished Respiratory: No accessory muscle use; chest expansion is symmetric, chest is bilaterally symmetric, other (scattered rhonchi and coarse crackles, increased exp phase) Cardiovascular: regular rate-rhythm, S1 and S2, systolic murmur (soft VASQUEZ at card base) Gastrointestional: No tender; soft; No guarding, No rebound; audible bowel sounds Extremities: No clubbing, No cyanosis, No significant edema Neurologic/Psychiatric: oriented x 3, other (moves all limbs equally) Skin: normal color, warm/dry; No cyanosis, No rash on exposed areas, No ulcerations on exposed areas Results/Procedures: Labs Laboratory Tests 07/10/22 04:10: Sodium Level 137, Potassium Level 3.8, Chloride Level 104, Carbon Dioxide Level 21, Anion Gap 12, Blood Urea Nitrogen 11, Creatinine 0.71, Estimat Glomerular Filtration Rate 91, BUN/Creatinine Ratio 15, Glucose Level 149H, Calcium Level 8.7 Microbiology 07/08/22 Blood Culture - Preliminary, Resulted No growth Laboratory Tests 07/08/22 19:25 07/09/22 04:30 07/10/22 04:10 A/P: Assessment: Pneumonia (associated with shortness of breath and hypoxia) - managed by the [facility] [place] Chest pain, nonspecific - most probably musculoskeletal, cardiac enzymes are normal, EKG did not show any acute abnormality - echo on 07-09-22 (Dr Cisneros): LVEF 60-65%, mild conc LVH, grade 2 diastolic dysfunction, mild MR, AoV sclerosis, PASP 55-60 mmHg Hypothyroidism - followed and managed by primary care physician Hyperlipidemia - maintained on atorvastatin as an outpatient. Hypertension Plan: * I interviewed and examined the patient and reviewed her records * I discussed her CV issues with her * Continue current regimen * Treat bp as needed * Monitor labs DENISE RÍOS MD FACP FAC CCDS July 10, 2022 12:28
[2022-07-10 16:38] VITALS: BP 157/81
[2022-07-10] MEDS: ENOXAPARIN 40 MG/0.4 ML (LOVENOX) SYR SC SCH (17:45)
[2022-07-10 19:08] VITALS: BP 167/79
[2022-07-10] MEDS: cefTRIAXone 1 GM/NS 50 ML IVPB IV SCH ×2 (20:20)
[2022-07-10] MEDS: HYDROcodone/APAP 5 MG/325 MG (LORTAB) TAB PO PRN (22:19)
[2022-07-10] MEDS: BENZONATATE 100 MG (TESSALON) CAPSULE PO PRN (22:20)
[2022-07-10] MEDS: ZOLPIDEM 5 MG (AMBIEN) TAB PO PRN (22:20)
[2022-07-11] VITALS (8 sets, daily range): BP systolic 150–172; BP diastolic 62–98
[2022-07-11] MEDS: RT-ALBUTEROL/IPRATROPIUM 3 ML (DUONEB) VIAL INH SCH ×7 (01:48→21:21)
[2022-07-11] MEDS: CATHETER FLUSH 10 ML SYR IVP SCH ×3 (06:22→21:07)
[2022-07-11] MEDS: ACYCLOVIR 400 MG TABLET (ZOVIRAX) PO SCH ×5 (06:22→21:07)
[2022-07-11] MEDS: LEVOTHYROXINE 100 MCG (LEVOTHROID) TAB PO SCH (06:22)
[2022-07-11] MEDS: guaiFENesin/CODEINE (ROBITUSSIN AC) 10ML UDC PO PRN ×3 (06:26→21:06)
[2022-07-11] MEDS: DOXYCYCLINE INJECTION 100 MG in NS (IVPB) 100 ML IV SCH ×2 (08:12→21:06)
[2022-07-11] MEDS: PANTOPRAZOLE 40 MG (PROTONIX) TAB PO SCH ×2 (08:13→21:07)
[2022-07-11] MEDS: guaiFENesin (MUCINEX) 600 MG TAB PO SCH ×2 (08:13→21:07)
[2022-07-11] MEDS: BENZONATATE 100 MG (TESSALON) CAPSULE PO PRN ×2 (08:13→21:07)
[2022-07-11] MEDS: methylPREDNISolone 40 MG/ML (Solu-MEDROL) VIAL IV SCH ×3 (08:13→21:06)
[2022-07-11] MEDS ORDERED: meTOproloL SUCCINATE 50 MG (TOPROL XL) TAB PO SCH (09:00)
--- NOTE | 2022-07-11 09:20 | Progress Note ---
Subjective Date Seen by a Provider: July 11, 2022 Time Seen by a Provider: 09:18 Subjective/Events-last exam Fwup acute respiratory distress/hypoxia, acute pneumonia, HTN, GERD. Ongoing cough and c/o fatigue. Focused Exam Lactate Level 07/08/22 19:25: Lactic Acid Level 1.46 Objective Exam Vital Signs Date Time Temp Pulse Resp B/P (MAP) Pulse Ox O2 Delivery O2 Flow Rate FiO2 07/11/22 07:55 117 07/11/22 07:30 36.6 110 18 172/87 (115) 92 Room Air 07/11/22 06:37 93 Room Air 0.00 07/11/22 04:00 96 18 151/62 (91) 90 Room Air 07/11/22 02:19 95 Room Air 07/11/22 00:57 95 07/11/22 00:21 93 18 151/62 (91) 07/10/22 21:50 95 Room Air 07/10/22 20:00 Room Air 07/10/22 19:08 36.6 100 18 167/79 (108) 92 Room Air 07/10/22 19:00 102 07/10/22 18:46 96 Room Air 07/10/22 16:38 36.8 90 18 157/81 (106) Room Air 07/10/22 14:41 95 Room Air 07/10/22 12:36 108 07/10/22 11:32 36.4 91 18 139/67 (91) 95 Room Air 07/10/22 10:16 93 Room Air 07/10/22 09:31 Room Air I & O 07/11/22 06:59 Intake Total 3140 ml Balance 3140 ml Capillary Refill : Less Than 3 Seconds General Appearance: Mild Distress Respiratory: Crackles (bases), Decreased Breath Sounds Cardiovascular: Regular Rate, Rhythm, Gallop/S4 Gastrointestinal: normal bowel sounds, non tender, soft Extremity: Non Tender, No Calf Tenderness, No Pedal Edema Neurologic/Psychiatric: Alert, Oriented x3 Results Lab Microbiology 07/08/22 Blood Culture - Preliminary, Resulted No growth Assessment/Plan Assessment/Plan Assess & Plan/Chief Complaint 1. Acute Respiratory Distress/Hypoxia--on oxygen via NC, proceed with CT scan of chest 2. Acute Pneumonia--on Rocephin and doxycycline 3. HTN/Tachycardia--increase metoprolol dose 4. GERD--on protonix ORENDER,KORI S DO July 11, 2022 09:20
--- NOTE | 2022-07-11 09:46 | Diagnostic Imaging Report ---
CT CHEST WO TECHNIQUE: Multiple contiguous axial images were obtained through the chest without the use of intravenous contrast. All CT scans use one or more of the following dose optimizing techniques: automated exposure control, MA and/or KvP adjustment based on a patient size and exam type, or iterative reconstruction. INDICATION: Cough COMPARISON: 07/16/2021 FINDINGS: Lungs and airway: No abnormality in the trachea. Scattered groundglass opacities within the bilateral upper and lower lobes. Pleura: No pneumothorax. Trace bilateral pleural effusions. Heart and mediastinum: No supraclavicular or axillary lymphadenopathy. Numerous small mediastinal lymph nodes are likely reactive in nature. Large hiatal hernia with approximately half the stomach located in the chest. Upper abdomen: No acute abnormality upper abdomen. Musculoskeletal: No worrisome focal osseous lesions. IMPRESSION: 1. Scattered bilateral groundglass is likely due to multifocal infection. 2. Trace bilateral pleural effusions. 3. Large hiatal hernia. 4. Borderline enlarged mediastinal lymph nodes are likely reactive from pulmonary pathology. Dictated by: Dictated on workstation # [id number]
[2022-07-11] MEDS: DOCUSATE SODIUM 100 MG (COLACE) CAP PO SCH ×2 (10:04→19:49)
[2022-07-11] MEDS ORDERED: RT-ALBUTEROL/IPRATROPIUM 3 ML (DUONEB) VIAL INH PRN (12:00)
[2022-07-11] MEDS ORDERED: amLODIPine 5 MG (NORVASC) TAB PO NR (13:30)
[2022-07-11] MEDS: HYDROcodone/APAP 5 MG/325 MG (LORTAB) TAB PO PRN (16:24)
[2022-07-11] MEDS ORDERED: meTOproloL SUCCINATE 50 MG (TOPROL XL) TAB PO NR (16:30)
[2022-07-11] MEDS: ENOXAPARIN 40 MG/0.4 ML (LOVENOX) SYR SC SCH (16:34)
--- NOTE | 2022-07-11 17:10 | Progress Note - Cardiology ---
Cardiology SOAP Progress Note Subjective: No cp or palp or syncope or shortness of breath at rest No n/v/d No focal weakness Has had intermittent headache today Some gen weakness and malaise present Objective: I&O/Vital Signs 07/11/22 07/11/22 07/11/22 07/11/22 06:37 07:30 07:55 08:00 Temp 36.6 Pulse 110 117 Resp 18 B/P (MAP) 172/87 (115) Pulse Ox 93 92 O2 Delivery Room Air Room Air Room Air O2 Flow Rate 0.00 07/11/22 07/11/22 07/11/22 07/11/22 09:58 10:17 11:39 13:47 Temp 36.6 37.0 Pulse 101 89 92 Resp 18 B/P (MAP) 170/82 (111) Pulse Ox 95 95 92 O2 Delivery Room Air Room Air O2 Flow Rate 0.00 FiO2 21 07/11/22 07/11/22 14:32 16:06 Temp 37.0 Pulse 95 Resp 20 B/P (MAP) 172/98 (122) Pulse Ox 95 93 O2 Delivery Room Air Room Air O2 Flow Rate 0.00 07/11/22 00:00 Intake Total 2540 ml Balance 2540 ml Weight (Pounds): 160 Weight (Ounces): 0.0 Weight (Calculated Kilograms): [id number] Constitutional: AAO x 3, well-developed, well-nourished Respiratory: No accessory muscle use; chest expansion is symmetric, chest is bilaterally symmetric, other (scattered rhonchi and coarse crackles, increased exp phase) Cardiovascular: regular rate-rhythm, S1 and S2, systolic murmur (soft VASQUEZ at card base) Gastrointestional: No tender; soft; No guarding, No rebound; audible bowel sounds Extremities: No clubbing, No cyanosis, No significant edema Neurologic/Psychiatric: oriented x 3, other (moves all limbs equally) Skin: normal color, warm/dry; No cyanosis, No rash on exposed areas, No ulcerations on exposed areas Results/Procedures: Labs Microbiology 07/08/22 Blood Culture - Preliminary, Resulted No growth Laboratory Tests 07/10/22 04:10 A/P: Assessment: Pneumonia (associated with shortness of breath and hypoxia) - [place] [facility] [place], nonspecific - most probably musculoskeletal, cardiac enzymes are normal, EKG did not show any acute abnormality - echo on 07-09-22 (Dr Cisneros): LVEF 60-65%, mild conc LVH, grade 2 diastolic dysfunction, mild MR, AoV sclerosis, PASP 55-60 mmHg Hypothyroidism - followed and managed by primary care physician Hyperlipidemia - maintained on atorvastatin as an outpatient. Hypertension Plan: * He bp has been elevated today. We are increasing beta david * She has been having headaches. I have asked her nurse Saroj to check with the Hospitalist regarding eval and treatment of headache * I discussed her CV issues with her * Continue current regimen * Monitor labs DENISE RÍOS MD FACP FAC CCDS July 11, 2022 17:09
[2022-07-11] MEDS: cefTRIAXone 1 GM/NS 50 ML IVPB IV SCH ×2 (21:06)
[2022-07-11] MEDS: ZOLPIDEM 5 MG (AMBIEN) TAB PO PRN (21:07)
[2022-07-12] MEDS: RT-ALBUTEROL/IPRATROPIUM 3 ML (DUONEB) VIAL INH SCH ×6 (02:19→22:09)
[2022-07-12 03:36] VITALS: BP 167/79
[2022-07-12 04:39] LABS: HEMATOCRIT 36 % (35-52); HEMOGLOBIN 12.4 g/dL (11.5-16.0); MEAN CORPUSCULAR HEMOGLOBIN 34 pg (25-34); MEAN CORPUSCULAR HGB CONC 35 g/dL (32-36); MEAN CORPUSCULAR VOLUME 98 fL (80-99); MEAN PLATELET VOLUME 10.2 fL (9.0-12.2); PLATELET COUNT 265 10^3/uL (130-400); WHITE BLOOD COUNT 29.2 10^3/uL (4.3-11.0)
[2022-07-12 04:50] LABS: ALBUMIN 3.2 GM/DL (3.2-4.5); POTASSIUM 3.9 MMOL/L (3.6-5.0)
[2022-07-12 04:52] LABS: CALCIUM 8.2 MG/DL (8.5-10.1)
[2022-07-12 04:53] LABS: TOTAL PROTEIN 6.1 GM/DL (6.4-8.2)
[2022-07-12 04:54] LABS: BILIRUBIN,TOTAL 0.5 MG/DL (0.1-1.0)
[2022-07-12 04:56] LABS: CREATININE SERUM 0.73 MG/DL (0.60-1.30)
[2022-07-12] MEDS: ACYCLOVIR 400 MG TABLET (ZOVIRAX) PO SCH ×5 (04:56→20:19)
[2022-07-12] MEDS: LEVOTHYROXINE 100 MCG (LEVOTHROID) TAB PO SCH (04:57)
[2022-07-12] MEDS: CATHETER FLUSH 10 ML SYR IVP SCH ×3 (04:58→20:19)
[2022-07-12 08:00] VITALS: BP 172/76
--- NOTE | 2022-07-12 08:07 | Progress Note ---
Subjective Subjective Date Seen by Provider: July 12, 2022 Time Seen by Provider: 07:40 Pt sitting in bed, anxious, breathing fast, reports that she has "something stuck in my throat" - she reports fatigue, feeling like she cannot stop coughing. Review of Systems General: No Chills; Fatigue, Malaise Pulmonary: Dyspnea, Cough Cardiovascular: No: Chest Pain, Palpitations Gastrointestinal: No: Nausea, Abdominal Pain Genitourinary: No Dysuria, No Frequency Neurological: Weakness; No: Confusion All Other Systems Reviewed All Other Systems Reviewed: Yes Objective Exam Vital Signs Vital Signs Date Time Temp Pulse Resp B/P (MAP) Pulse Ox O2 Delivery O2 Flow Rate FiO2 07/12/22 08:00 36.6 80 18 172/76 (108) 92 Room Air 07/12/22 07:29 99 Room Air 0.00 07/12/22 06:45 69 07/12/22 03:36 36.6 100 18 167/79 (108) 94 Nasal Cannula 1.00 07/12/22 02:19 93 Room Air 07/12/22 01:00 71 07/11/22 23:47 37.1 80 18 150/74 (99) 94 Nasal Cannula 1.00 07/11/22 21:21 93 Room Air 07/11/22 20:00 Room Air 07/11/22 19:31 36.9 84 18 169/80 (109) 92 Nasal Cannula 1.00 07/11/22 19:00 87 07/11/22 18:26 94 Room Air 07/11/22 16:06 37.0 95 20 172/98 (122) 93 Room Air 07/11/22 14:32 95 Room Air 0.00 07/11/22 13:47 92 07/11/22 11:39 37.0 89 18 170/82 (111) 92 Room Air 07/11/22 10:17 36.6 101 95 21 07/11/22 09:58 95 Room Air 0.00 I & O 07/12/22 06:59 Intake Total 2660 ml Balance 2660 ml General Appearance: Mild Distress Eyes: Bilateral Eye Normal Inspection, Bilateral Eye PERRL, Bilateral Eye EOMI HEENT: PERRL/EOMI, Pharynx Normal, Other (inflamed slightly ulcerated area right lower gumline near teeth ) Neck: Full Range of Motion, Supple Respiratory: Crackles (bases), Decreased Breath Sounds Cardiovascular: Regular Rate, Rhythm, Gallop/S4 Gastrointestinal: Normal Bowel Sounds, Non Tender, Soft Rectal: Deferred Back: Normal Inspection, No CVA Tenderness, No Vertebral Tenderness Extremity: Non Tender, No Calf Tenderness, No Pedal Edema Neurologic/Psychiatric: Alert, Oriented x3 Skin: Normal Color, Warm/Dry Lymphatic: No Adenopathy Results Lab Laboratory Tests 07/12/22 04:33: White Blood Count 29.2H, Red Blood Count 3.66L, Hemoglobin 12.4, Hematocrit 36, Mean Corpuscular Volume 98, Mean Corpuscular Hemoglobin 34, Mean Corpuscular Hemoglobin Concent 35, Red Cell Distribution Width 13.2, Platelet Count 265, Mean Platelet Volume 10.2, Sodium Level 139, Potassium Level 3.9, Chloride Level 103, Carbon Dioxide Level 24, Anion Gap 12, Blood Urea Nitrogen 13, Creatinine 0.73, Estimat Glomerular Filtration Rate 88, BUN/Creatinine Ratio 18, Glucose Level 139H, Calcium Level 8.2L, Corrected Calcium 8.8, Total Bilirubin 0.5, Aspartate Amino Transf (AST/SGOT) 54H, Alanine Aminotransferase (ALT/SGPT) 75H, Alkaline Phosphatase 125, Total Protein 6.1L, Albumin 3.2 Microbiology 07/08/22 Blood Culture - Preliminary, Resulted No growth Assessment/Plan Assessment/Plan Admission Dx Pneumonia Acute respiratory distress Acute Hypoxemia Cough Chronic Hypertension Chronic Hypothyroidism Chronic depression and anxiety Assessment and Plan Pneumonia Acute respiratory distress Acute Hypoxemia Cough Chronic Hypertension Chronic Hypothyroidism Chronic depression and anxiety Pneumonia with Acute respiratory distress and Acute Hypoxemia with persistent Cough - pt admitted to the hospital, started on IV antibiotics, IV steroids, and breathing treatments with albuterol inhaler (not on nebs due to nationwide shortages) - changed from IV solumedrol to prednisone - continue with cough medication, added mucinex, she is doing Incentive spirometry and EZ pap device - pt instructed in the use. - Acutely short of breath today- due to anxiety - rx for ativan put into computer - pt on mucinex Chronic Hypertension - resume home regimen, consult to cardiology due to her pulmonary edema Chronic Hypothyroidism - resume levothyroxine at 100mcg daily - from clinic charting. Chronic depression and anxiety - restarted celexa at 20mg daily (from clinic chart review) dvt prophylaxis with scd's and lovenox gi prophylaxis with protonix plan dc tuesday or tuesday pending her symptoms. Admission Dx Pneumonia Acute respiratory distress Acute Hypoxemia Cough Chronic Hypertension Chronic Hypothyroidism Chronic depression and anxiety Clinical Quality Measures Admission Status Admission Dx Pneumonia Acute respiratory distress Acute Hypoxemia Cough Chronic Hypertension Chronic Hypothyroidism Chronic depression and anxiety ANTONIO BLANDON MD July 12, 2022 08:07
[2022-07-12] MEDS ORDERED: WATER (STERILE) FOR INJECTION 10 ML ONE (08:34)
[2022-07-12] MEDS: meTOprolol SUCCINATE 100 MG (TOPROL XL) TAB PO SCH (08:38)
[2022-07-12] MEDS: guaiFENesin (MUCINEX) 600 MG TAB PO SCH ×2 (08:38→20:19)
[2022-07-12] MEDS: methylPREDNISolone 40 MG/ML (Solu-MEDROL) VIAL IV SCH (08:38)
[2022-07-12] MEDS: DOCUSATE SODIUM 100 MG (COLACE) CAP PO SCH ×2 (08:38→20:20)
[2022-07-12] MEDS: PANTOPRAZOLE 40 MG (PROTONIX) TAB PO SCH ×2 (08:38→20:19)
[2022-07-12] MEDS: DOXYCYCLINE INJECTION 100 MG in NS (IVPB) 100 ML IV SCH ×2 (08:41→20:20)
[2022-07-12] MEDS ORDERED: meTOproloL SUCCINATE 50 MG (TOPROL XL) TAB PO SCH ×2 (09:00)
[2022-07-12] MEDS ORDERED: LORazepam 0.5 MG (ATIVAN) TABLET PO ONE (09:30)
[2022-07-12] MEDS ORDERED: FINA5TAB6 PO (09:34)
[2022-07-12] MEDS ORDERED: UBID100C17 PO (09:34)
[2022-07-12] MEDS ORDERED: PANT40TA52 PO ×2 (09:34)
[2022-07-12] MEDS ORDERED: ACET-2650 PO (09:34)
[2022-07-12] MEDS ORDERED: VIT1CAPS5 PO (09:34)
[2022-07-12] MEDS ORDERED: B6/F1CAP PO (09:34)
[2022-07-12] MEDS ORDERED: LEVO100T7 PO (09:34)
[2022-07-12] MEDS ORDERED: LEVO5TAB12 PO (09:34)
[2022-07-12] MEDS ORDERED: CITA20TA9 PO (09:34)
[2022-07-12] MEDS ORDERED: GUAI120013 PO (09:34)
[2022-07-12] MEDS ORDERED: IBUP-2185 PO (09:34)
[2022-07-12] MEDS ORDERED: CELE200C PO (09:34)
[2022-07-12] MEDS ORDERED: ZINC50TA51 PO (09:34)
[2022-07-12] MEDS ORDERED: PRD20T PO (09:36)
[2022-07-12] MEDS ORDERED: MULT-1018 PO (09:39)
--- NOTE | 2022-07-12 09:56 | Cardiology Progress Note ---
Subjective Date Seen by Provider: July 12, 2022 Time Seen by Provider: 08:35 Subjective/Events-last exam Patient is sitting up in bed, appears slightly anxious. Complaining of cough. Denies any chest pain or increased dyspnea. Objective-Cardiology Exam Last Set of Vital Signs Vital Signs 07/11/22 07/12/22 07/12/22 10:17 07:29 08:00 Temp 36.6 Pulse 80 Resp 18 B/P (MAP) 172/76 (108) Pulse Ox 92 O2 Delivery Room Air O2 Flow Rate 0.00 FiO2 21 I&O Intake and Output 07/11/22 23:59 Intake Total 2660 ml Balance 2660 ml Intake Oral 2560 ml IV Total 100 ml # Voids 12 # Bowel Movements 2 General: Alert, Oriented X3, Cooperative HEENT: Atraumatic, PERRLA Lungs: Other (bilat rhonchi) Heart: Regular Rate, Normal S1 Abdomen: Normal Bowel Sounds, Soft, No Tenderness Extremities: No Edema Neuro: Normal Speech, Cranial Nerves 3-12 NL Psych/Mental Status: Mental Status NL, Other (anxious) Results Lab Laboratory Tests 07/12/22 04:33 A/P-Cardiology Admission Diagnosis Pneumonia Chest pain Shortness of breath Pulmonary edema Assessment/Plan Pneumonia, shortness of breath with cough. Started on Rocephin and doxycycline. Reporting improvement Chest pain, nonspecific etiology, most probably musculoskeletal, cardiac enzymes are normal, EKG did not show any acute abnormality 2D echo done 07/09/22 showing EF 55-60%, grade 2 diastolic dysfunction. Mild MR, AV sclerosis. PA 55-60mmHg. We will consider evaluating stress test in the future as an outpatient Hypoxemia and shortness of breath secondary to pneumonia, reporting improvement. Hypothyroidism, followed and managed by primary care physician Hyperlipidemia, maintained on atorvastatin as an outpatient. Hypertension, blood pressure is better at this point, continue to monitor Supervisory-Addendum Brief Supervisory Addendum Participated in pt care: history, MDM, physical Personally performed: exam, history, MDM Care discussed with: ALIDA Results interpretation: Verified all documentation Notes: Patient was seen and evaluated with Otoniel, examination performed, management plan was discussed, agree with the current scribed note, I made few changes to the note using Italic font Patient was seen at bedside, sitting comfortably Still complaining of productive cough and dyspnea Mild chest discomfort in the retrosternal area probably secondary to cough. Planning to evaluate stress test as an outpatient OTONIEL JUSTIN July 12, 2022 09:56 THEO JESSICA MD July 12, 2022 11:31
[2022-07-12] MEDS ORDERED: BENZOCAINE LOZENGES 1 EACH LOZENGE PO PRN (10:00)
[2022-07-12 11:37] VITALS: BP 184/88
[2022-07-12] MEDS ORDERED: hydrALAZINE (APRESOLINE) 25 MG TAB PO NR (15:45)
[2022-07-12] MEDS: ENOXAPARIN 40 MG/0.4 ML (LOVENOX) SYR SC SCH (16:21)
[2022-07-12 16:23] VITALS: BP 165/77
[2022-07-12 20:08] VITALS: BP 173/84
[2022-07-12] MEDS: LORazepam 0.5 MG (ATIVAN) TABLET PO PRN (20:18)
[2022-07-12] MEDS: LOSARTAN 25 MG (COZAAR) TAB PO SCH (20:18)
[2022-07-12] MEDS: guaiFENesin/CODEINE (ROBITUSSIN AC) 10ML UDC PO PRN (20:19)
[2022-07-12] MEDS: cefTRIAXone 1 GM/NS 50 ML IVPB IV SCH ×2 (20:20)
[2022-07-12] MEDS: ZOLPIDEM 5 MG (AMBIEN) TAB PO PRN (21:39)
[2022-07-12 23:33] VITALS: BP 159/77
[2022-07-13] VITALS (7 sets, daily range): BP systolic 129–166; BP diastolic 62–83
[2022-07-13] MEDS: RT-ALBUTEROL/IPRATROPIUM 3 ML (DUONEB) VIAL INH SCH ×2 (02:25→06:56)
[2022-07-13] MEDS: ACYCLOVIR 400 MG TABLET (ZOVIRAX) PO SCH ×5 (05:11→20:00)
[2022-07-13] MEDS: LEVOTHYROXINE 100 MCG (LEVOTHROID) TAB PO SCH (05:11)
[2022-07-13] MEDS: CATHETER FLUSH 10 ML SYR IVP SCH ×3 (05:11→20:00)
[2022-07-13] MEDS: predniSONE 20 MG TAB PO SCH (05:11)
--- NOTE | 2022-07-13 08:23 | Cardiology Progress Note ---
Subjective Date Seen by Provider: July 13, 2022 Time Seen by Provider: 08:21 Subjective/Events-last exam Patient was seen and evaluated, laying down comfortably Complaining of cough. Review of Systems General: No Chills, No Night Sweats; Fatigue; No Malaise, No Appetite, No Other HEENT: No Head Aches, No Visual Changes, No Ear Pain, No Dysphasia, No Sinus Congestion, No Post Nasal Drip, No Sore Throat, No Other Pulmonary: Dyspnea, Cough; No Pleuritic Chest Pain, No Other Cardiovascular: No: Chest Pain, Palpitations, Orthopnea, Paroxysmal Noc. Dyspnea, Edema, Lt Headedness, Other Objective-Cardiology Exam Last Set of Vital Signs Vital Signs 07/11/22 07/13/22 07/13/22 10:17 06:56 07:04 Temp 36.4 Pulse 100 Resp 18 B/P (MAP) 155/83 (107) Pulse Ox 94 O2 Delivery Room Air O2 Flow Rate 0.00 FiO2 21 I&O Intake and Output 07/13/22 00:00 Intake Total 3420 ml Balance 3420 ml Intake Oral 3170 ml IV Total 250 ml # Voids 14 # Bowel Movements 4 General: Alert, Oriented X3, Cooperative HEENT: Atraumatic, PERRLA Lungs: Other (bilat rhonchi) Heart: Regular Rate, Normal S1 Abdomen: Normal Bowel Sounds, Soft, No Tenderness Extremities: No Edema Neuro: Normal Speech, Cranial Nerves 3-12 NL Psych/Mental Status: Mental Status NL, Other (anxious) A/P-Cardiology Admission Diagnosis Pneumonia Chest pain Shortness of breath Pulmonary edema Assessment/Plan Pneumonia, shortness of breath with cough. Started on Rocephin and doxycycline. Still having bilateral rhonchi and cough. Leukocytosis, worsening on July 13, 2022, probably secondary to steroids Continue to monitor Chest pain, nonspecific etiology, most probably musculoskeletal, cardiac enzymes are normal, EKG did not show any acute abnormality 2D echo done 07/09/22 showing EF 55-60%, grade 2 diastolic dysfunction. Mild MR, AV sclerosis. PA 55-60mmHg. We will consider evaluating stress test in the future as an outpatient Hypoxemia and shortness of breath secondary to pneumonia, reporting improvement. Hypothyroidism, followed and managed by primary care physician Hyperlipidemia, maintained on atorvastatin as an outpatient. Hypertension, blood pressure is better at this point, continue to monitor THEO JESSICA MD July 13, 2022 08:23
[2022-07-13] MEDS: guaiFENesin (MUCINEX) 600 MG TAB PO SCH ×2 (08:46→20:00)
[2022-07-13] MEDS: LORazepam 0.5 MG (ATIVAN) TABLET PO PRN ×2 (08:46→20:00)
[2022-07-13] MEDS: DOCUSATE SODIUM 100 MG (COLACE) CAP PO SCH ×2 (08:46→20:00)
[2022-07-13] MEDS: PANTOPRAZOLE 40 MG (PROTONIX) TAB PO SCH ×2 (08:47→20:00)
[2022-07-13] MEDS: meTOprolol SUCCINATE 100 MG (TOPROL XL) TAB PO SCH (08:47)
[2022-07-13] MEDS: AMOXICILLIN 500 MG (POLYMOX) CAP PO SCH ×2 (09:00→13:41)
[2022-07-13] MEDS: ENOXAPARIN 40 MG/0.4 ML (LOVENOX) SYR SC SCH (17:35)
[2022-07-13] MEDS: AUGMENTIN 875 MG TAB (AMOXICILLIN/CLAVULANATE) PO SCH (17:35)
--- NOTE | 2022-07-13 18:28 | Progress Note ---
Subjective Subjective Date Seen by Provider: July 13, 2022 Time Seen by Provider: 09:05 Pt sitting in bed, feeling better today, slept well lastnight. She continues with cough, congestion, but is better, just really tired. She has many questions written down for today. Review of Systems General: No Chills, No Night Sweats; Fatigue; No Malaise, No Appetite, No Other HEENT: No Head Aches, No Visual Changes, No Ear Pain, No Dysphasia, No Sinus Congestion, No Post Nasal Drip, No Sore Throat, No Other Pulmonary: Dyspnea, Cough; No Pleuritic Chest Pain, No Other Cardiovascular: No: Chest Pain, Palpitations, Orthopnea, Paroxysmal Noc. Dyspnea, Edema, Lt Headedness, Other Gastrointestinal: No: Nausea, Abdominal Pain Genitourinary: No Dysuria, No Frequency Neurological: Weakness; No: Confusion All Other Systems Reviewed All Other Systems Reviewed: Yes Objective Exam Vital Signs Vital Signs Date Time Temp Pulse Resp B/P (MAP) Pulse Ox O2 Delivery O2 Flow Rate FiO2 07/13/22 16:30 37.0 69 16 166/79 (108) 96 Room Air 07/13/22 13:03 68 07/13/22 12:07 36.2 71 18 134/72 (92) 98 Room Air 07/13/22 08:00 Room Air 07/13/22 07:04 36.4 100 18 155/83 (107) 94 Room Air 07/13/22 07:00 36.6 64 97 07/13/22 06:56 97 Room Air 0.00 07/13/22 06:48 66 07/13/22 04:00 36.6 18 160/82 (108) 93 Nasal Cannula 1.00 07/13/22 01:00 64 07/12/22 23:33 36.2 73 18 159/77 (104) 93 Nasal Cannula 1.00 07/12/22 22:09 Room Air 0.00 07/12/22 20:08 36.6 73 18 173/84 (113) 95 Room Air 07/12/22 20:00 Room Air 07/12/22 19:00 77 07/12/22 18:53 93 Room Air 0.00 I & O 07/13/22 07:00 Intake Total 3170 ml Balance 3170 ml General Appearance: No Apparent Distress, WD/WN Eyes: Bilateral Eye Normal Inspection, Bilateral Eye PERRL, Bilateral Eye EOMI HEENT: PERRL/EOMI, Pharynx Normal, Other (inflamed slightly ulcerated area right lower gumline near teeth ) Neck: Full Range of Motion, Supple Respiratory: Crackles (bases), Decreased Breath Sounds Cardiovascular: Regular Rate, Rhythm, Gallop/S4 Gastrointestinal: Normal Bowel Sounds, Non Tender, Soft Rectal: Deferred Back: Normal Inspection, No CVA Tenderness, No Vertebral Tenderness Extremity: Non Tender, No Calf Tenderness, No Pedal Edema Neurologic/Psychiatric: Alert, Oriented x3 Skin: Normal Color, Warm/Dry Lymphatic: No Adenopathy Results Lab Microbiology 07/08/22 Blood Culture - Preliminary, Resulted No growth Assessment/Plan Assessment/Plan Admission Dx Pneumonia Acute respiratory distress Acute Hypoxemia Cough Chronic Hypertension Chronic Hypothyroidism Chronic depression and anxiety Assessment and Plan Pneumonia Acute respiratory distress Acute Hypoxemia Cough Chronic Hypertension Chronic Hypothyroidism Chronic depression and anxiety Pneumonia with Acute respiratory distress and Acute Hypoxemia with persistent Cough - pt admitted to the hospital, started on IV antibiotics, IV steroids, and breathing treatments with albuterol inhaler (not on nebs due to nationwide shortages) - changed from IV solumedrol to prednisone - continue with cough medication, added mucinex, she is doing Incentive spirometry and EZ pap device - pt instructed in the use. - Acutely short of breath today- due to anxiety - rx for ativan put into computer - pt on mucinex Chronic Hypertension - resume home regimen, consult to cardiology due to her pulmonary edema Chronic Hypothyroidism - resume levothyroxine at 100mcg daily - from clinic charting. Chronic depression and anxiety - restarted celexa at 20mg daily (from clinic chart review) dvt prophylaxis with scd's and lovenox gi prophylaxis with protonix plan dc tuesday or tuesday pending her symptoms. Admission Dx Pneumonia Acute respiratory distress Acute Hypoxemia Cough Chronic Hypertension Chronic Hypothyroidism Chronic depression and anxiety Clinical Quality Measures Admission Status Admission Dx Pneumonia Acute respiratory distress Acute Hypoxemia Cough Chronic Hypertension Chronic Hypothyroidism Chronic depression and anxiety ANTONIO BLANDON MD July 13, 2022 18:28
[2022-07-13] MEDS: LOSARTAN 25 MG (COZAAR) TAB PO SCH (19:59)
--- NOTE | 2022-07-13 20:00 | Physician Query Clarification ---
Physician Query-General Query to Physician: The medical record reflects the following clinical evidence: Clinical Indicators: RR 26 on admission has been above 20 predominantly, ER documentation shortness of air at rest labored breathing tachypnea, Has been on 3.5 to 1 supplemental 02 for 4 + days 02 sat 85% on room air in ER, O2 sats 92% on 3 L, (P/F+203) Risk Factor(s): Pneumonia with Difficulty clearing secretions, No documentation of home 02 use Treatment: Supplemental 02 up to 3.5L, Duonebs, IV ABX , Respiratory monitoring Acute respiratory failure with hypoxia, present on admission, resolving Other explanation of clinical findings Unable to determine (no explanation for clinical findings) Please clarify and document your clinical opinion in the progress notes and discharge summary including the definitive and/or presumptive diagnosis, (susp ected or probable), related to the above clinical findings. Please include clinical findings supporting your diagnosis. Tess Finley, MSN, RN Clinical Carriage Operator [phone] [email or web address] PHYSICIAN RESPONSE: Based on the clinical findings in the record, please respond to the query above on this document as an addendum. Physician Response: Physician Response Acute respiratory failure with hypoxia, present on admission, resolving If you have questions please contact: Bobbin Collector: Ext: Thank you for your time and cooperation. Clinical Carriage Operator/Bobbin Collector This is a permanent part of the medical record TESS FINLEY July 13, 2022 20:00 ANTONIO BLANDON MD July 14, 2022 12:20
[2022-07-13] MEDS: guaiFENesin/CODEINE (ROBITUSSIN AC) 10ML UDC PO PRN (20:01)
[2022-07-13] MEDS: HYDROcodone/APAP 5 MG/325 MG (LORTAB) TAB PO PRN (23:33)
[2022-07-13] MEDS: ZOLPIDEM 5 MG (AMBIEN) TAB PO PRN (23:38)
[2022-07-14 03:17] VITALS: BP 145/83
[2022-07-14] MEDS: CATHETER FLUSH 10 ML SYR IVP SCH (05:03)
[2022-07-14] MEDS: LEVOTHYROXINE 100 MCG (LEVOTHROID) TAB PO SCH (06:10)
[2022-07-14] MEDS: ACYCLOVIR 400 MG TABLET (ZOVIRAX) PO SCH ×5 (06:10→20:00)
[2022-07-14] MEDS: predniSONE 20 MG TAB PO SCH (06:10)
[2022-07-14 07:45] VITALS: BP 137/50
[2022-07-14] MEDS: guaiFENesin (MUCINEX) 600 MG TAB PO SCH ×2 (08:16→20:00)
[2022-07-14] MEDS: PANTOPRAZOLE 40 MG (PROTONIX) TAB PO SCH ×2 (08:16→20:00)
[2022-07-14] MEDS: AUGMENTIN 875 MG TAB (AMOXICILLIN/CLAVULANATE) PO SCH ×2 (08:16→17:11)
[2022-07-14] MEDS: DOCUSATE SODIUM 100 MG (COLACE) CAP PO SCH ×2 (08:16→20:01)
[2022-07-14] MEDS: meTOprolol SUCCINATE 100 MG (TOPROL XL) TAB PO SCH (08:16)
[2022-07-14] MEDS: RT-ALBUTEROL/IPRATROPIUM 3 ML (DUONEB) VIAL INH SCH ×2 (08:36→20:24)
--- NOTE | 2022-07-14 08:46 | Cardiology Progress Note ---
Subjective Date Seen by Provider: July 14, 2022 Time Seen by Provider: 08:45 Subjective/Events-last exam Patient was seen at bedside, sitting comfortably, feeling better today. Denies any chest pain, reporting improvement in cough. Review of Systems General: No Chills, No Night Sweats, No Fatigue, No Malaise, No Appetite, No Other HEENT: No Head Aches, No Visual Changes, No Eye Pain, No Ear Pain, No Dysphasia, No Sinus Congestion, No Post Nasal Drip, No Sore Throat, No Other Pulmonary: No Dyspnea, No Cough, No Pleuritic Chest Pain, No Other Cardiovascular: No: Chest Pain, Palpitations, Orthopnea, Paroxysmal Noc. Dyspnea, Edema, Lt Headedness, Other Objective-Cardiology Exam Last Set of Vital Signs Vital Signs 07/11/22 07/14/22 07/14/22 10:17 07:45 08:36 Temp 36.0 Pulse 70 Resp 18 B/P (MAP) 137/50 (79) Pulse Ox 95 O2 Delivery Room Air O2 Flow Rate 0.00 FiO2 21 I&O Intake and Output 07/14/22 00:00 Intake Total 2375 ml Balance 2375 ml Intake Oral 2375 ml # Voids 11 # Bowel Movements 1 General: Alert, Oriented X3, Cooperative HEENT: Atraumatic, PERRLA Lungs: Other (bilat rhonchi, improving compared to yesterday) Heart: Regular Rate, Normal S1 Abdomen: Normal Bowel Sounds, Soft, No Tenderness Extremities: No Clubbing, No Cyanosis, No Edema Skin: No Rashes Neuro: Normal Speech, Cranial Nerves 3-12 NL Psych/Mental Status: Mental Status NL, Other (anxious) A/P-Cardiology Admission Diagnosis Pneumonia Chest pain Shortness of breath Pulmonary edema Assessment/Plan Pneumonia, shortness of breath with cough. Currently on Rocephin and doxycycline. Clinically better today. Still having mild rales. Managed by medical team Leukocytosis, worsening on July 13, 2022, probably secondary to steroids Continue to monitor Chest pain, nonspecific etiology, most probably musculoskeletal, cardiac enzymes are normal, EKG did not show any acute abnormality 2D echo done 07/09/22 showing EF 55-60%, grade 2 diastolic dysfunction. Mild MR, AV sclerosis. PA 55-60mmHg. We will consider evaluating stress test in the future as an outpatient Hypoxemia and shortness of breath secondary to pneumonia, reporting improvement. Hypothyroidism, followed and managed by primary care physician Hyperlipidemia, maintained on atorvastatin as an outpatient. Hypertension, blood pressure is better at this point, continue to monitor Okay for discharge from cardiology standpoint THEO JESSICA MD July 14, 2022 08:46
--- NOTE | 2022-07-14 08:55 | Diagnostic Imaging Report ---
INDICATION: Follow-up pneumonia COMPARISON: 07/10/2022 FINDINGS: Frontal and lateral views of the chest demonstrate normal heart size and pulmonary vascularity. The lungs are clear. There are no signs of infiltrate, pleural effusions or pneumothoraces. The visualized osseous structures show no acute abnormalities. IMPRESSION: 1. No acute process. No signs of infiltrates, effusions or pneumothoraces. Dictated by: Dictated on workstation # [id number]
[2022-07-14 11:34] VITALS: BP 133/53
[2022-07-14 15:45] VITALS: BP 146/69
[2022-07-14] MEDS: ENOXAPARIN 40 MG/0.4 ML (LOVENOX) SYR SC SCH (17:12)
[2022-07-14] MEDS: ZOLPIDEM 5 MG (AMBIEN) TAB PO PRN (20:00)
[2022-07-14] MEDS: LOSARTAN 25 MG (COZAAR) TAB PO SCH (20:00)
[2022-07-14] MEDS: HYDROcodone/APAP 5 MG/325 MG (LORTAB) TAB PO PRN (20:01)
[2022-07-14 20:13] VITALS: BP 159/75
[2022-07-14 23:56] VITALS: BP 130/68
[2022-07-15 04:16] VITALS: BP 137/78
[2022-07-15] MEDS: predniSONE 20 MG TAB PO SCH (06:10)
[2022-07-15] MEDS: LEVOTHYROXINE 100 MCG (LEVOTHROID) TAB PO SCH (06:10)
[2022-07-15] MEDS: ACYCLOVIR 400 MG TABLET (ZOVIRAX) PO SCH ×2 (06:10→09:20)
[2022-07-15 07:28] VITALS: BP 125/60
--- NOTE | 2022-07-15 08:03 | Cardiology Progress Note ---
Subjective Date Seen by Provider: July 15, 2022 Time Seen by Provider: 08:01 Subjective/Events-last exam Patient was seen at bedside sitting comfortably, feeling better, still having some residual cough Review of Systems General: No Chills, No Night Sweats, No Fatigue, No Malaise, No Appetite, No Other HEENT: No Head Aches, No Visual Changes, No Eye Pain, No Ear Pain, No Dysphas ia, No Sinus Congestion, No Post Nasal Drip, No Sore Throat, No Other Pulmonary: No Dyspnea; Cough; No Pleuritic Chest Pain, No Other Cardiovascular: No: Chest Pain, Palpitations, Orthopnea, Paroxysmal Noc. Dyspn ea, Edema, Lt Headedness, Other Objective-Cardiology Exam Last Set of Vital Signs Vital Signs 07/11/22 07/14/22 07/15/22 10:17 08:36 07:28 Temp 36.2 Pulse 71 Resp 18 B/P (MAP) 125/60 (81) Pulse Ox 96 O2 Delivery Room Air O2 Flow Rate 0.00 FiO2 21 I&O Intake and Output 07/15/22 00:00 Intake Total 2640 ml Balance 2640 ml Intake Oral 2640 ml # Voids 10 # Bowel Movements 2 General: Alert, Oriented X3, Cooperative HEENT: Atraumatic, PERRLA Lungs: Clear to Auscultation, Normal Air Movement Heart: Regular Rate, Normal S1, Normal S2 Abdomen: Normal Bowel Sounds, Soft, No Tenderness Extremities: No Clubbing, No Cyanosis, No Edema Skin: No Rashes Neuro: Normal Speech, Cranial Nerves 3-12 NL Psych/Mental Status: Mental Status NL, Other (anxious) A/P-Cardiology Admission Diagnosis Pneumonia Chest pain Shortness of breath Pulmonary edema Assessment/Plan Pneumonia, shortness of breath with cough. Received Rocephin and doxycycline Currently on Augmentin Clinically better. Managed by primary care physician Leukocytosis, worsening on July 13, 2022, probably secondary to steroids Continue to monitor Chest pain, nonspecific etiology, most probably musculoskeletal, cardiac enzymes are normal, EKG did not show any acute abnormality 2D echo done 07/09/22 showing EF 55-60%, grade 2 diastolic dysfunction. Mild MR, AV sclerosis. PA 55-60mmHg. We will consider evaluating stress test in the future as an outpatient Hypoxemia and shortness of breath secondary to pneumonia, reporting improvement. Hypothyroidism, followed and managed by primary care physician Hyperlipidemia, maintained on atorvastatin as an outpatient. Hypertension, blood pressure is better at this point, continue to monitor Okay for discharge from cardiology standpoint THEO JESSICA MD July 15, 2022 08:03
--- NOTE | 2022-07-15 08:05 | Progress Note ---
Subjective Subjective Date Seen by Provider: July 14, 2022 Time Seen by Provider: 08:30 Pt sitting in bed, feeling better today, slept well last night. Review of Systems General: No Chills, No Night Sweats, No Fatigue, No Malaise, No Appetite, No Other HEENT: No Head Aches, No Visual Changes, No Eye Pain, No Ear Pain, No Dysphasia, No Sinus Congestion, No Post Nasal Drip, No Sore Throat, No Other Pulmonary: No Dyspnea; Cough; No Pleuritic Chest Pain, No Other Cardiovascular: No: Chest Pain, Palpitations, Orthopnea, Paroxysmal Noc. Dyspnea, Edema, Lt Headedness, Other Gastrointestinal: No: Nausea, Abdominal Pain Genitourinary: No Dysuria, No Frequency Neurological: Weakness; No: Confusion All Other Systems Reviewed All Other Systems Reviewed: Yes Objective Exam Vital Signs Vital Signs Date Time Temp Pulse Resp B/P (MAP) Pulse Ox O2 Delivery O2 Flow Rate FiO2 07/15/22 07:28 36.2 71 18 125/60 (81) 96 Room Air 07/15/22 07:00 66 07/15/22 04:16 36.5 69 18 137/78 (97) 96 Room Air 07/15/22 01:00 63 07/14/22 23:56 36.4 65 18 130/68 (88) 95 Room Air 07/14/22 20:24 100 Room Air 07/14/22 20:13 36.6 79 18 159/75 (103) 94 Room Air 07/14/22 20:00 Room Air 07/14/22 19:00 70 07/14/22 15:45 36.5 62 16 146/69 (94) 97 Room Air 07/14/22 13:18 79 07/14/22 11:34 36.4 75 18 133/53 (79) 92 Room Air 07/14/22 08:36 95 Room Air 0.00 07/14/22 08:15 Room Air I & O 07/15/22 07:00 Intake Total 2440 ml Balance 2440 ml General Appearance: No Apparent Distress, WD/WN Eyes: Bilateral Eye Normal Inspection, Bilateral Eye PERRL, Bilateral Eye EOMI HEENT: PERRL/EOMI, Pharynx Normal, Other (inflamed slightly ulcerated area right lower gumline near teeth ) Neck: Full Range of Motion, Supple Respiratory: Crackles (bases), Decreased Breath Sounds Cardiovascular: Regular Rate, Rhythm, Gallop/S4 Gastrointestinal: Normal Bowel Sounds, Non Tender, Soft Rectal: Deferred Back: Normal Inspection, No CVA Tenderness, No Vertebral Tenderness Extremity: Non Tender, No Calf Tenderness, No Pedal Edema Neurologic/Psychiatric: Alert, Oriented x3 Skin: Normal Color, Warm/Dry Lymphatic: No Adenopathy Results Lab Microbiology 07/08/22 Blood Culture - Final, Complete No growth Assessment/Plan Assessment/Plan Admission Dx Pneumonia Acute respiratory distress Acute Hypoxemia Cough Chronic Hypertension Chronic Hypothyroidism Chronic depression and anxiety Assessment and Plan Pneumonia Acute respiratory distress Acute Hypoxemia Cough Chronic Hypertension Chronic Hypothyroidism Chronic depression and anxiety Pneumonia with Acute respiratory distress and Acute Hypoxemia with persistent Cough - pt admitted to the hospital, started on IV antibiotics, IV steroids, and breathing treatments with albuterol inhaler (not on nebs due to nationwide shortages) - changed from IV solumedrol to prednisone - continue with cough medication, added mucinex, she is doing Incentive spirometry and EZ pap device - pt instructed in the use. - Acutely short of breath today- due to anxiety - rx for ativan put into computer - pt on mucinex Chronic Hypertension - resume home regimen, consult to cardiology due to her pulmonary edema Chronic Hypothyroidism - resume levothyroxine at 100mcg daily - from clinic charting. Chronic depression and anxiety - restarted celexa at 20mg daily (from clinic chart review) dvt prophylaxis with scd's and lovenox gi prophylaxis with protonix plan dc tuesday or tuesday pending her symptoms. Admission Dx Pneumonia Acute respiratory distress Acute Hypoxemia Cough Chronic Hypertension Chronic Hypothyroidism Chronic depression and anxiety Clinical Quality Measures Admission Status Admission Dx Pneumonia Acute respiratory distress Acute Hypoxemia Cough Chronic Hypertension Chronic Hypothyroidism Chronic depression and anxiety ANTONIO BLANDON MD July 15, 2022 08:05
[2022-07-15] MEDS: RT-ALBUTEROL/IPRATROPIUM 3 ML (DUONEB) VIAL INH SCH (08:29)
--- NOTE | 2022-07-15 09:10 | Discharge Summary ---
Diagnosis/Chief Complaint Date of Admission July 08, 2022 at 21:47 Date of Discharge Reason Hospital Visit Pt is a 72 y/o female who is known to me from clinic. [place] was admitted to the hospital after having shortness of breath and a cough that progressed over the past week while she was on a bus trip to [place], [place]. She thought it was allergies from the trees and pollen she was not used to breathing in as well as the pollution of the city. She states that she had so much mucous and discharge that she really had a hard time breathing correctly. She states that she was barely drinking or urinating yesterday - she went to the restroom 2 times in over 9 hours. She feels better currently, less short of breath. Discharge Summary Discharge Physical Examination Allergies: Coded Allergies: clarithromycin (Unverified Allergy, Mild, 05/17/06) nitrofurantoin (Unverified Allergy, Mild, 05/17/06) sulfamethoxazole (Unverified Allergy, Mild, 05/17/06) trimethoprim (Unverified Allergy, Mild, 05/17/06) codeine (Verified Adverse Reaction, Unknown, NAUSEA, 07/08/22) Vitals & I&Os Vital Signs Date Time Temp Pulse Resp B/P (MAP) Pulse Ox O2 Delivery O2 Flow Rate FiO2 07/15/22 07:28 36.2 71 18 125/60 (81) 96 Room Air 07/14/22 08:36 0.00 07/11/22 10:17 21 Discharge Instructions to patient/family Please see electronic discharge instructions given to patient. Discharge Medications Reviewed and agree with Discharge Medication list on patient's Discharge Instruction sheet ANTONIO BLANDON MD July 15, 2022 09:09
[2022-07-15] MEDS ORDERED: AMOX1TAB12 PO (09:14)
[2022-07-15] MEDS ORDERED: GFCD10B PO (09:14)
[2022-07-15] MEDS ORDERED: BENZ100C18 PO (09:14)
[2022-07-15] MEDS ORDERED: Albuterol Inhaler IH (09:14)
[2022-07-15] MEDS ORDERED: ACYC400T21 PO (09:14)
[2022-07-15] MEDS ORDERED: MTP100TCR PO (09:14)
--- NOTE | 2022-07-15 09:17 | Discharge Inst-Simple/Standard ---
Discharge Inst-Standard Reconcile Patient Problems Problems Reviewed?: Yes Discharge Medications New, Converted or Re-Newed RX: Transmitted to Pharmacy Patient Instructions/Follow Up Plan of Care/Instructions/FU: 1-2 wk follow up with arvind Activity as Tolerated: Yes Discharge Diet: Regular Diet Health Concerns: shortness of breath, cough, pneumonia, elevated blood pressure Return to The Hospital For: shortness of breath, dizziness, or other lifethreatening illness or injury Medication List: Active Scripts Active Metoprolol Succinate 100 Mg Tab.er.24h 100 Mg PO DAILY Robitussin Ac (Codeine) Syrup (Guaifenesin/Codeine Phosphate) 10 Ml Syrp 5 Ml PO Q4H PRN Tessalon Perles (Benzonatate) 100 Mg Capsule 100 Mg PO Q6H PRN [Albuterol Inhaler] 8.5 GM Hfa.aer.ad 0 Gm IH RTQ4HR PRN Acyclovir 400 Mg Tablet 400 Mg PO 5XD 7 Days Amox Tr-K Clv 875-125 mg Tab (Amoxicillin/Potassium Clav) 875 Mg-125 Mg Tablet 875 Mg PO BID WITH MEALS 5 Days Reported Hair, Skin & Nails Caplet (Multivit-Min/Folic Acid/Biotin) 66.7 Mcg-1,000 Mcg Tablet 1 Each PO DAILY Prednisone 20 Mg Tab Mg PO DAILY FILLED 07-07-2022 #20/ DAY SUPPLY Neuriva Plus Brain Perform Cap (B6/Folic/B12/Coffee/Phosphatid) 1.7MG-400 Capsule 1 Each PO HS Pantoprazole Sodium 40 Mg Tablet.dr 40 Mg PO DAILY PRN Pantoprazole Sodium 40 Mg Tablet.dr 40 Mg PO HS Celebrex (Celecoxib) 200 Mg Capsule 200 Mg PO HS Tylenol Arthritis (Acetaminophen) 650 Mg Tablet.er 650 Mg PO QID PRN Levocetirizine Dihydrochloride 5 Mg Tablet 5 Mg PO HS Zinc (Zinc Amino Acid Chelate) 50 Mg Tablet 50 Mg PO DAILY Coq-10 (Ubidecarenone) 100 Mg Capsule 200 Mg PO DAILY Ibuprofen 200 Mg Capsule 200 Mg PO DAILY Mucinex (Guaifenesin) 1,200 Mg Tab.er.12h 1,200 Mg PO Q12H PRN Levothyroxine Sodium 100 Mcg Tablet 100 Mcg PO DAILY Citalopram HBr (Citalopram Hydrobromide) 20 Mg Tablet 20 Mg PO HS Finasteride 5 Mg Tablet 5 Mg PO HS Preservision Areds Softgel (Vit A/C/E/Zinc/Co) 4,296-226 Capsule 1 Each PO DAILY Multivitamins (Multivitamin) 1 Each Tablet 1 Each PO DAILY Atorvastatin Calcium 10 Mg Tablet 10 Mg PO HS Amitriptyline HCl 25 Mg Tablet 25 Mg PO HS Probiotic (L.acidoph & Paracasei,B.lactis) 1 Each Capsule 1 Cap PO DAILY Calcium 600 + Vit D3 Tablet (Calcium Carbonate/Vitamin D3) 1 Each Tablet 1 Tab PO BID Vitamin C (Ascorbic Acid) 1,000 Mg Tablet 1,000 Mg PO DAILY Fish Oil 1,200 mg Fish Oil (Fish Oil/Dha/Epa) 1 Each Capsule 1 Cap PO BID Estradiol Tablet (Estradiol) 2 Mg Tablet 2 Mg PO HS My orders: Orders - ANTONIO BLANDON MD Attending Discharge Inpt/Inobs (07/15/22 09:10) ANTONIO BLANDON MD July 15, 2022 09:17
[2022-07-15] MEDS: meTOprolol SUCCINATE 100 MG (TOPROL XL) TAB PO SCH (09:20)
[2022-07-15] MEDS: AUGMENTIN 875 MG TAB (AMOXICILLIN/CLAVULANATE) PO SCH (09:20)
[2022-07-15] MEDS: DOCUSATE SODIUM 100 MG (COLACE) CAP PO SCH (09:20)
[2022-07-15] MEDS: PANTOPRAZOLE 40 MG (PROTONIX) TAB PO SCH (09:20)
[2022-07-15] MEDS: guaiFENesin (MUCINEX) 600 MG TAB PO SCH (09:20)
== END 2022-07-15 09:51 | disposition home or self-care (01) | DRG 193 ==
LOC: EDUNIT# 19:21 → ER 19:24 → CSD 21:47 → 4TH 07-10 09:33
PROVIDERS: ADMIT Family Medicine; ATTEND Family Medicine
DX: J18.9 Pneumonia, unspecified organism (principal); J96.01 Acute respiratory failure with hypoxia; J81.1 Chronic pulmonary edema; I10 Essential (primary) hypertension; E03.9 Hypothyroidism, unspecified; E78.5 Hyperlipidemia, unspecified; K21.9 Gastro-esophageal reflux disease without esophagitis; F41.9 Anxiety disorder, unspecified; F32.A Depression, unspecified; R07.89 Other chest pain; I08.0 Rheumatic disorders of both mitral and aortic valves; D72.829 Elevated white blood cell count, unspecified; T38.0X5A Adverse effect of glucocorticoids and synthetic analogues, initial encounter; H54.3 Unqualified visual loss, both eyes; H91.90 Unspecified hearing loss, unspecified ear; Z88.1 Allergy status to other antibiotic agents; Z88.5 Allergy status to narcotic agent; Z88.2 Allergy status to sulfonamides; Z91.09 Other allergy status, other than to drugs and biological substances
CPT/HCPCS: 36415; 71045; 71046; 71250; 80048; 80053; 82805; 83605; 83880; 84484; 85007; 85025; 85027; 85610; 85730; 87040; 87077; 87185; 87636; 93005; 93306; 94640; 94664; 94760; 96361; 96365; 96375

== ENCOUNTER → 2022-08-24 | Outpatient (CLI) | payer MEDICARE ==
[~2022-08-24] MED LIST changes: +ACET-2650 PO; +ACYC400T21 PO; +AMOX1TAB12 PO; +Albuterol Inhaler IH; +B6/F1CAP PO; +BENZ100C18 PO; +CELE200C PO; +CITA20TA9 PO; +FINA5TAB6 PO; +GFCD10B PO; +GUAI120013 PO; +IBUP-2185 PO; +LEVO100T7 PO; +LEVO5TAB12 PO; +MTP100TCR PO; +MULT-1018 PO; +PANT40TA52 PO; +PRD20T PO; +UBID100C17 PO; +ZINC50TA51 PO
[2022-08-24 13:32] LABS: ABSOLUTE RETIC # 93 10e9/uL (24-90); BASOPHILS # (AUTO) 0.1 10^3/uL (0.0-0.1); BASOPHILS % (AUTO) 1 % (0-10); EOSINOPHILS # (AUTO) 0.2 10^3/uL (0.0-0.3); EOSINOPHILS % (AUTO) 3 % (0-10); HEMATOCRIT 39 % (35-52); HEMOGLOBIN 12.7 g/dL (11.5-16.0); LYMPHOCYTES # (AUTO) 2.3 10^3/uL (1.0-4.0); LYMPHOCYTES % (AUTO) 31 % (12-44); MEAN CORPUSCULAR HEMOGLOBIN 34 pg (25-34); MEAN CORPUSCULAR HGB CONC 33 g/dL (32-36); MEAN CORPUSCULAR VOLUME 102 fL (80-99); MEAN PLATELET VOLUME 10.3 fL (9.0-12.2); MONOCYTES # (AUTO) 0.7 10^3/uL (0.0-1.0); MONOCYTES % (AUTO) 10 % (0-12); NEUTROPHILS # (AUTO) 4.1 10^3/uL (1.8-7.8); NEUTROPHILS % (AUTO) 56 % (42-75); PLATELET COUNT 249 10^3/uL (130-400); RETICULOCYTE % 2.48 % (0.50-2.40); WHITE BLOOD COUNT 7.3 10^3/uL (4.3-11.0)
[2022-08-24 13:54] LABS: BAND NEUTROPHILS 0 %; BASOPHILS % (MANUAL) 0 %; EOSINOPHILS % (MANUAL) 4 %; LYMPHOCYTES % (MANUAL) 33 %; MONOCYTES % (MANUAL) 10 %; NEUTROPHILS % (MANUAL) 53 %; RBC MORPH NORMAL
== END ==
LOC: RAD 13:11
PROVIDERS: ATTEND Family Medicine
DX: D72.810 Lymphocytopenia (principal); D50.9 Iron deficiency anemia, unspecified; R61 Generalized hyperhidrosis
CPT/HCPCS: 36415; 85007; 85027; 85045; 85055